=== PATIENT | male | born 2000 | race Caucasian/White ===

== ENCOUNTER 2023-11-14 16:44 | Observation (INO) ==
[2023-11-14 17:32] LABS: Hematocrit (blood only) 42.9 % (42.0-52.0); Hemoglobin 14.6 g/dl (14.0-18.0); Mean Corpuscular Volume 91.1 fL (80.0-100.0); Platelet Count 205 K/uL (130-400); RDW Coefficient of Variation 12.4 % (11.5-14.5); RDW Standard Deviation 41.1 fL (36.4-46.3); Red Blood Count 4.71 M/uL (4.70-6.10); White Blood Count 8.78 K/ul (4.8-10.8)
--- NOTE | 2023-11-14 17:46 | CT Scan Report ---
CT SCAN OF THE BRAIN WITHOUT IV CONTRAST CLINICAL HISTORY: Left upper and lower extremity numbness. Neurological deficit. Strokelike symptoms. COMPARISON STUDY: CT of the brain dated 01/19/2021. TECHNIQUE: Unenhanced axial CT scan of the brain is performed from the vertex to the skull base. A d ose lowering technique was utilized adhering to the principles of ALARA. CT DOSE: 625.8 mGy.cm FINDINGS: Brain parenchyma: The brain parenchyma is normal in appearance. There is no hemorrhage, mass effect, or evidence of acute territorial ischemia by CT criteria. Luque-white matter differentiation is preser brian. No extra-axial fluid collection is seen. Ventricles, sulci, cisterns: Normal in configuration. Intracranial vasculature: The visualized intracranial vasculature at the skull base is normal in appe arance. Calvarium: Unremarkable. Sinuses and mastoids: The visualized paranasal sinuses are clear. The mastoid air cells are well pneu matized. Orbits: The bony orbits are grossly intact. IMPRESSION: No acute intracranial abnormality. ACT 112: Negative or not required by law. Electronically signed by: Agustin Paz M.D. 11/14/2023 5:44 PM
[2023-11-14 17:53] LABS: Alanine Aminotransferase 12 U/L (7-52); Albumin Globulin Ratio 2.1 (0.9-2); Albumin Level 4.7 gm/dl (3.4-5.0); Alkaline Phosphatase 71 U/L (34-104); Anion Gap 6 (3-11); Aspartate Aminotransferase 15 U/L (13-39); BUN Creatinine Ratio 10.5 (10-20); Bilirubin,Total 0.7 mg/dl (0.2-1.0); Blood Urea Nitrogen 10 mg/dl (6-23); Calcium 9.7 mg/dl (8.6-10.3); Carbon Dioxide 27 mmol/L (21-32); Chloride 106 mmol/L (98-107); Est GFR (African American) 129.3 ml/min; Est GFR (Non-African American) 111.6 ml/min; Globulin 2.2 gm/dl (2.5-4.0); Glucose 101 mg/dl (70-99(Fasting)); Magnesium 1.7 mg/dl (1.7-2.4); Potassium 3.7 mmol/L (3.5-5.1); Sodium 139 mmol/L (136-145); Total Protein 6.9 gm/dl (6.0-8.3)
[2023-11-14 18:00] LABS: Partial Thromboplastin Ratio 0.9; Partial Thromboplastin Time 23 Seconds (21-31); Prothrombin Time 11.1 Seconds (9.0-12.0)
--- NOTE | 2023-11-14 18:54 | Emergency Department Note ---
Impression & Plan Fever, Back pain, Abdominal pain, SOB (shortness of breath), COVID-19 ED Provider Note CHIEF COMPLAINT: Back pain and paresthesias HISTORY OF PRESENTING ILLNESS: This 23-year-old male patient presents to the emergency department for evaluation of left-sided lower back pain as well as tingling in his left arm and left leg since yesterday morning. Denies any true numbness. Still able to move his arms and legs and walk, but he feels very weak. Denies pain in his neck or middle back at rest, but does have some pain with touching these areas. He denies any injury or trauma. Denies any loss of control of his bowel or bladder functions. 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 Has some mild SOB, but denies chest pain. Denies abdominal pain, nausea, or vomiting. He has been having fevers 102.5 F max that started this morning. Has been having a mild intermittent cough as well. Denies any other URI symptoms. Denies any previous spinal surgeries. He has had 4 lumbar punctures in the past due to evaluation for MS with his last LP in 2018. His last spinal and brain MRI was about 6-8 months ago at [facility]. 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 He follows up with neurology at [facility]. He is not on any steroids right now, but sometimes gets high dose steroids with a flare. However, he states that this does not feel like a typical flare for him. He feels like something else is going on. The patient states that he uses protection with all sexual encounters. He does not feel that he is at risk for STIs. REVIEW OF SYSTEMS: See HPI for pertinent positives and pertinent negatives. ALLERGIES: PCN MEDICATIONS: None PAST MEDICAL HISTORY: NMO (neuromyelitis optica), legally blind in both eyes PHYSICAL EXAM: VITALS: Vitals are noted on the nurse's note and reviewed by myself. GENERAL: No acute distress, non-diaphoretic. SKIN: No obvious abnormal rashes or skin lesions. Capillary reflex less than 2 seconds. HEAD: No scalp tenderness. No step-offs felt. EARS: Bilateral external auditory canals clear. Bilateral tympanic membranes pearly luque without erythema or effusion. No hemotympanum. No larios sign. No mastoid tenderness. EYES: Conjunctivae without injection, sclerae without icterus. Unable to accurately test EOM due to his blindness. NOSE: Patent, turbinates without inflammation or discharge. No sinus tenderness. No septal hematoma or bleeding. FACE: No facial bone tenderness. Full range of motion of the jaw without tenderness. No facial droop. MOUTH: Mucous membranes moist. Uvula midline. Airway patent. Tongue does not deviate. NECK: Supple without nuchal rigidity. Cervical spine is mildly tender to palpation in the mid to lower cervical spine and paraspinal muscles. Full range of motion of the neck without tenderness and normal strength. HEART: Regular rate and rhythm without murmurs gallops or rubs. LUNGS: Clear to auscultation bilaterally without wheezes, rales or rhonchi. No retractions or accessory muscle use. No chest wall tenderness. ABDOMEN: Positive bowel sounds x 4. Normal tympanic percussion. Soft, tender to palpation to the left side of the abdomen as well as the left flank. No obvious masses or organomegaly. Mildly positive left-sided CVA tenderness. No guarding or rebound tenderness. No focal right lower quadrant tenderness. MUSCULOSKELETAL: The patient is tender to palpation diffusely over the thoracic spine and lumbar spine. Maximal tenderness over the left-sided paraspinal muscles. Full range of motion of the bilateral upper and lower extremities. However, his left arm and left leg are weaker compared to the right on initial exam, but then normal strength on repeat exam. Normal sensation to light and sharp touch of the bilateral upper and lower extremities. Peripheral pulses 2+ and equal in the bilateral upper and lower extremities. : Permission to perform the exam. Patient Day Coordinator present for exam. Testicles are descended bilaterally. No testicular masses or lesions noted. No obvious penile lesions or discharge noted. No obvious hernias appreciated. RECTAL EXAM: Permission to perform the exam. Patient Day Coordinator present for exam. No external lesions noted. No external hemorrhoids. Normal sphincter tone. Internal hemorrhoids are not enlarged. No masses, tears, fistulas, fissures, abscess, or other lesion noted. Prostate does not feel enlarged and no obvious prostate lesions/masses. No significant tenderness to palpation of the prostate. Stool is brown and Hemoccult negative. NEURO: Patient was alert and oriented to person place and time. Normal mental status exam. DIFFERENTIAL DIAGNOSIS: Differential diagnosis includes strain/sprain, muscle spasm, disc herniation, fracture, subluxation, metastatic disease, cord compression, discitis, sciatica, cauda equina, conus medullaris syndrome, infection, epidural abscess, epidural hematoma, aortic disease, renal colic, UTI, pyelonephritis, gastrointestinal, Influenza, RSV, COVID, viral syndrome, otitis media, otitis externa, pharyngitis, strep throat, pneumonia, meningitis, urinary tract infection, cellulitis, abscess, sepsis, bacteremia, as well as other pathologies. ED COURSE AND MEDICAL DECISION MAKING: MONITOR: Continuous poultry picking machine tender: Order was placed for continuous poultry picking machine tender. Patient was placed on the poultry picking machine tender and continuous pulse ox. Patient was noted to be in normal sinus rhythm at an initial rate of 66 bpm per my interpretation. EKG: EKG was interpreted by myself as normal sinus rhythm at [address]pm with no acute ST or T wave changes. MEDICATIONS GIVEN: 1 L normal saline solution bolus. Tylenol 1000 mg IV. Morphine 4 mg IV. Zofran 4 mg IV. INTERPRETATION OF LABS: I interpreted the labs with full lab results as below in the lab section of this note. CBC without leukocytosis, anemia, or thrombocytopenia. Coags were normal. Glucose 101, but CMP otherwise unremarkable. High-sensitivity troponin was normal. TSH normal. Magnesium normal. Urinalysis unremarkable. Respiratory bio fire positive for COVID 19. INTERPRETATION OF IMAGING: Imaging studies were interpreted by myself and read by radiology as per the imaging section of this note. CT scan of the head without contrast was negative for acute intracranial abnormalities and the bony orbits were grossly intact. CT scans of the cervical, thoracic, and lumbar spines without contrast were negative for acute fracture, subluxation, discitis, osteomyelitis, or other significant abnormalities. CTA of the chest was negative for PE, pneumonia, or other acute abnormalities. CT scan of the abdomen pelvis with IV contrast shows hyperemia around the prostate and seminal vesicles. This may simply represent robust venous plexus, but correlation for infection should be considered. No other acute abnormalities. CONSULTATIONS: On-call hospitalist MDM SUMMARY: The patient was seen during a time of extreme volume and extreme acuity. Nursing triage protocols were initiated with IV lock, labs, and/or imaging studies conducted by protocol in the triage area. The patient was initially evaluated in a sub-waiting room and then re-examined once they were taken back to an exam room. The patient has had a fever of 102.5 F max since this morning along with a mild intermittent cough. He is complaining of left-sided back pain as well as left-sided abdominal pain. Has also had some paresthesias into his left arm and leg. The patient has had multiple LPs for evaluation of MS, but was ultimately diagnosed with NMO. The patient states that he last had an MRI of the brain and lower spine a couple months ago and [facility]. The patient was hydrated with 1 L normal saline solution bolus. He was given Tylenol 1000 mg IV, morphine 4 mg IV, and Zofran 4 mg IV. Laboratory studies as above without acute abnormalities other than a respiratory bio fire positive for COVID-19. CT scan of the head without contrast was negative for acute intracranial abnormalities. CT scans of the cervical, thoracic, and lumbar spine were negative for acute fracture, subluxation, discitis, osteomyelitis, or other significant abnormalities. CT of the chest negative for PE, pneumonia, or other acute abnormalities. CT scan of the abdomen pelvis with IV contrast shows hyperemia around the prostate and seminal vesicles, but the patient has no evidence for infection based on exam. Per radiology, this may simply represent robust venous plexus. I had a meaningful discussion about this patient with Dr. Chang who agrees with my assessment and the treatment plan. Due to the patient's fever, COVID infection, continued back pain/abdominal pain, and neurological symptoms we feel the patient requires admission for further evaluation and treatment. I spoke with the on-call hospitalist who agreed to admit the patient for further management. Please refer to their dictation for further details. The patient's care was transferred in stable condition. DIAGNOSIS: Fever Back pain Abdominal pain Shortness of breath COVID-19 Attending Attestation: I Son Chang MD I have reviewed the advanced practitioner's documentation and agree with the plan of care. I accept the responsibility for the associated risk of managing the patient. I performed a substantive portion of the visit including involvement in all aspects of medical decision making. Past Med/Surg History Problem List (Updated 11/15/23 @ 06:13 by Bishop Garcia MD) Left-sided weakness COVID-19 (Acute) SOB (shortness of breath) (Acute) Abdominal pain (Acute) Back pain (Acute) Fever (Acute) COVID (Acute) No pertinent past medical history Medical History No pertinent past medical history Social History Smoking Status: Current every day smoker Tobacco Type: Cigarettes Second Hand Exposure: Yes; Do You Dip or Chew Tobacco: No; Tobacco Cessation Education Requested by Patient: No Hx Alcohol Use: Yes Alcohol type: beer Hx Substance Use: Yes Last Used Substance: Unknown Substance Use Type Other:: Medical marijuana Preferred Language: Israeli Communication Ability: Effective Nursing Program Coordinator Required: No Beliefs That Will Affect Care: None Current Living Situation: Parent Current Living Situation Comment: Lives with mother Other Information That Helps Us Care for You: No Feels Safe at Home: Yes Safety Concerns: Feels Safe At This Time Allergies Allergies Allergy/AdvReac Type Severity Reaction Status Date / Time Penicillins Allergy Intermediate RED RASH & Verified 11/14/23 21:49 SWELLING Home Meds Home Medications Medication Instructions Recorded Confirmed No Known Home Medications 11/14/23 11/14/23 Results & Data (ED) Vital Signs Vital Signs - 24 hr 11/14/23 16:50 11/14/23 19:55 11/14/23 20:17 Temperature 37.4 C Temperature Source Oral Pulse Rate 90 68 Pulse Rate [Right Radial] 63 Pulse Rate from SpO2 Sensor Pulse Rhythm [Right Radial] Regular Pulse Strength [Right Radial] Normal Respiratory Rate 15 16 Respiratory Effort / Characteristics Non-Labored Spontaneous Non-Labored Spontaneous Respiratory Depth Normal Normal Respiratory Pattern Regular Blood Pressure 103/61 Blood Pressure [Left Arm] 103/54 L Blood Pressure Mean 75 Blood Pressure Mean [Left Arm] 70 Blood Pressure Position [Left Arm] Sitting Pulse Oximetry 97 98 Oxygen Delivery Method Room Air Room Air Sepsis Recent Fever Within 48 Hours No Sepsis New/Unexplained Change in Mental Status No Sepsis Action Taken by Nursing No Action Required 11/14/23 22:33 11/14/23 23:45 11/14/23 23:54 Temperature Temperature Source Pulse Rate 56 L 78 60 Pulse Rate [Right Radial] Pulse Rate from SpO2 Sensor 59 L Pulse Rhythm [Right Radial] Pulse Strength [Right Radial] Respiratory Rate 18 20 18 Respiratory Effort / Characteristics Respiratory Depth Respiratory Pattern Blood Pressure 118/60 111/61 118/60 Blood Pressure [Left Arm] Blood Pressure Mean 79 77 79 Blood Pressure Mean [Left Arm] Blood Pressure Position [Left Arm] Pulse Oximetry 99 99 98 Oxygen Delivery Method Room Air Room Air Room Air Sepsis Recent Fever Within 48 Hours Sepsis New/Unexplained Change in Mental Status Sepsis Action Taken by Nursing 11/15/23 00:13 11/15/23 00:30 11/15/23 01:00 Temperature Temperature Source Pulse Rate 53 L 58 L 71 Pulse Rate [Right Radial] Pulse Rate from SpO2 Sensor Pulse Rhythm [Right Radial] Pulse Strength [Right Radial] Respiratory Rate 17 15 Respiratory Effort / Characteristics Respiratory Depth Respiratory Pattern Blood Pressure 108/55 L 116/69 Blood Pressure [Left Arm] Blood Pressure Mean 72 84 Blood Pressure Mean [Left Arm] Blood Pressure Position [Left Arm] Pulse Oximetry 98 98 Oxygen Delivery Method Room Air Room Air Sepsis Recent Fever Within 48 Hours Sepsis New/Unexplained Change in Mental Status Sepsis Action Taken by Nursing Laboratory Data 11/15/23 03:35 11/15/23 03:35 Lab Results 11/14/23 11/14/23 Range/Units 17:10 Unknown WBC 8.78 (4.8-10.8) K/ul RBC 4.71 (4.70-6.10) M/uL Hgb 14.6 (14.0-18.0) g/dl Hct 42.9 (42.0-52.0) % MCV 91.1 (80.0-100.0) fL MCH 31.0 (25.0-34.0) pg MCHC 34.0 (32.0-36.0) g/dL RDW Std Deviation 41.1 (36.4-46.3) fL RDW Coeff of Patricia 12.4 (11.5-14.5) % Plt Count 205 (130-400) K/uL MPV 10.0 (9.4-12.4) fL PT 11.1 (9.0-12.0) Seconds INR 1.0 (0.9-1.1) APTT 23 (21-31) Seconds PTT Ratio 0.9 Sodium 139 (136-145) mmol/L Potassium 3.7 (3.5-5.1) mmol/L Chloride 106 (98-107) mmol/L Carbon Dioxide 27 (21-32) mmol/L Anion Gap 6 (3-11) BUN 10 (6-23) mg/dl Creatinine 0.95 (0.6-1.4) mg/dl Est Cr Clr Drug Dosing Not Reportable Est GFR ( Amer) 129.3 ml/min Est GFR (Non-Af Amer) 111.6 ml/min BUN/Creatinine Ratio 10.5 (10-20) Glucose 101 H (70-99(Fasting)) mg/dl Calcium 9.7 (8.6-10.3) mg/dl Magnesium 1.7 (1.7-2.4) mg/dl Total Bilirubin 0.7 (0.2-1.0) mg/dl AST 15 (13-39) U/L ALT 12 (7-52) U/L Alkaline Phosphatase 71 (34-104) U/L Troponin I High Sens < 2.3 (0-20) pg/ml Total Protein 6.9 (6.0-8.3) gm/dl Albumin 4.7 (3.4-5.0) gm/dl Globulin 2.2 L (2.5-4.0) gm/dl Albumin/Globulin Ratio 2.1 H (0.9-2) TSH 0.559 (0.300-4.500) uIu/ml Urine Color Yellow Urine Appearance Clear (Clear) Urine pH 7.5 (4.5-7.5) Ur Specific Hertel > 1.045 H (1.000-1.030) Urine Protein Negative (Negative) Urine Glucose (UA) Negative (Negative) Urine Ketones Negative (Negative) Urine Blood Negative (Negative) Urine Nitrite Negative (Negative) Urine Bilirubin Negative (Negative) Urine Urobilinogen Negative (Negative) Ur Leukocyte Esterase Negative (Negative) Adenovirus (PCR) Not Detected (NotDetected) B. pertussis DNA (PCR) Not Detected (NotDetected) B.parapertussis DNA PCR Not Detected (NotDetected) Lyme Disease Screen Negative (Negative) C. pneumoniae DNA (PCR) Not Detected (NotDetected) Coronavirus OC43 (PCR) Not Detected (NotDetected) Coronavirus HKU1 (PCR) Not Detected (NotDetected) Coronavirus 229E (PCR) Not Detected (NotDetected) SARS-CoV-2 (PCR) DETECTED A (NotDetected) Coronavirus NL63 (PCR) Not Detected (NotDetected) Human Metapneumovir PCR Not Detected (NotDetected) Influenza Type A (PCR) Not Detected (NotDetected) Influenza Type B (PCR) Not Detected (NotDetected) M. pneumoniae (PCR) Not Detected (NotDetected) Parainfluenza 1 (PCR) Not Detected (NotDetected) Parainfluenza 2 (PCR) Not Detected (NotDetected) Parainfluenza 3 (PCR) Not Detected (NotDetected) Parainfluenza 4 (PCR) Not Detected (NotDetected) RSV (PCR) Not Detected (NotDetected) Entero/Rhino (PCR) Not Detected (NotDetected) Administered Medications Enoxaparin Sodium (Enoxaparin Inj 40 Mg/0.4 Ml Syr) 40 mg SQ QAGREAT [facility] Stop: 12/15/23 08:59 Last Admin: 11/15/23 08:45 Dose: 40 mg Documented By: WAGNER Folic Acid (Folic Acid 1 Mg Tab) 1 mg PO QAGREAT [facility] Stop: 12/15/23 08:59 Last Admin: 11/15/23 08:44 Dose: 1 mg Documented By: WAGNER Multivitamins (Multivitamin Tab) 1 tab PO QAGREAT [facility] [place] Stop: 12/15/23 08:59 Last Admin: 11/15/23 08:44 Dose: 1 tab Documented By: WAGNER Discontinued Medications Acetaminophen (Acetaminophen 1000 Mg/100 Ml Iv) Confirm Administered Dose 1,000 mg IV .STK-MED ONE Stop: 11/14/23 18:50 Last Admin: 11/14/23 19:04 Dose: Not Given Documented By: CHRIS Acetaminophen (Ofirmev) 1,000 mg in 100 mls @ 400 mls/hr IV NOW STA Stop: 11/14/23 19:02 Last Infusion: 11/14/23 19:28 Dose: Infused Documented By: Admin: 11/14/23 19:03 Dose: 400 mls/hr Documented By: CHRIS Sodium Chloride (Nss) 1,000 mls @ 999 mls/hr IV .Q1H1M ONE Stop: 11/14/23 20:10 Last Infusion: 11/14/23 22:13 Dose: Infused Documented By: Admin: 11/14/23 20:07 Dose: 999 mls/hr Documented By: DELONTE Magnesium Sulfate/Dextrose (Magnesium Sulfate / D5w) 1 gm in 100 mls @ 50 mls/hr IV Q2H JOSSUE Stop: 11/15/23 04:29 Last Infusion: 11/15/23 04:00 Dose: Infused Documented By: Admin: 11/15/23 02:51 Dose: 50 mls/hr Documented By: Infusion: 11/15/23 02:51 Dose: Infused Documented By: Admin: 11/15/23 01:34 Dose: 50 mls/hr Documented By: DELONTE Potassium Chloride/Sodium Chloride (Normal Saline W/20 Meq Kcl) 20 meq in 1,000 mls @ 100 mls/hr IV .Q10H ONE; Protocol Stop: 11/15/23 10:29 Last Infusion: 11/15/23 10:52 Dose: Infused Documented By: Admin: 11/15/23 01:35 Dose: 100 mls/hr Documented By: DELONTE Thiamine HCl 100 mg/ Syringe 10 mls @ 2 mls/min IV NOW ONE Stop: 11/15/23 06:19 Last Admin: 11/15/23 08:44 Dose: 2 mls/min Documented By: WAGNER Ioversol (Optiray 320 125ml) 119 ml IV ONCE ONE Stop: 11/14/23 19:40 Last Admin: 11/14/23 19:39 Dose: 119 ml Documented By: RONALD Ketorolac Tromethamine (Ketorolac Tromethamine 15 Mg/Ml Vial) 15 mg IV NOW ONE Stop: 11/15/23 01:05 Last Admin: 11/15/23 01:34 Dose: 15 mg Documented By: DELONTE Morphine Sulfate (Morphine Sulfate 4 Mg/Ml 1 Ml Carp\Vial) 4 mg IV NOW STA Stop: 11/14/23 23:28 Last Admin: 11/14/23 23:37 Dose: 4 mg Documented By: DELONTE Ondansetron HCl (Ondansetron Inj 2 Mg/Ml 2 Ml Vial) 4 mg IV NOW STA Stop: 11/14/23 23:28 Last Admin: 11/14/23 23:37 Dose: 4 mg Documented By: DELONTE Potassium Chloride (Potassium Chloride Crtab 20 Meq Tabcr) 40 meq PO NOW STA Stop: 11/15/23 00:25 Last Admin: 11/15/23 01:33 Dose: 40 meq Documented By: DELONTE Imaging Data Radiologist's Impression: Head CT 11/14/23 16:57 CT SCAN OF THE BRAIN WITHOUT IV CONTRAST CLINICAL HISTORY: Left upper and lower extremity numbness. Neurological deficit. Strokelike symptoms. COMPARISON STUDY: CT of the brain dated 01/19/2021. TECHNIQUE: Unenhanced axial CT scan of the brain is performed from the vertex to the skull base. A dose lowering technique was utilized adhering to the principles of ALARA. CT DOSE: 625.8 mGy.cm FINDINGS: Brain parenchyma: The brain parenchyma is normal in appearance. There is no hemorrhage, mass effect, or evidence of acute territorial ischemia by CT criteria. Luque-white matter differentiation is preserved. No extra-axial fluid collection is seen. Ventricles, sulci, cisterns: Normal in configuration. Intracranial vasculature: The visualized intracranial vasculature at the skull base is normal in appearance. Calvarium: Unremarkable. Sinuses and mastoids: The visualized paranasal sinuses are clear. The mastoid air cells are well pneumatized. Orbits: The bony orbits are grossly intact. IMPRESSION: No acute intracranial abnormality. ACT 112: Negative or not required by law. Electronically signed by: Agustin Paz M.D. 11/14/2023 5:44 PM Abdomen/Pelvis CT 11/14/23 19:10 Exam(s): CT ABDOMEN + PELVIS With Contrast IV Amt: 119 ml optiray 320 EXAM: CT Abdomen and Pelvis With Intravenous Contrast CLINICAL HISTORY: Reason for exam: abdominal pain, fever, left flank pain. TECHNIQUE: Axial computed tomography images of the abdomen and pelvis with intravenous contrast. CTDI is 14.43 mGy and DLP is 732.91 mGy-cm. Automated exposure control was utilized for the study. A dose lowering technique was utilized adhering to the principles of ALARA. CONTRAST: Patient received 119 ml optiray 320 of IV contrast COMPARISON: No relevant prior studies available. FINDINGS: ABDOMEN: Liver: Unremarkable. Gallbladder and bile ducts: Unremarkable. Pancreas: Unremarkable. Spleen: Unremarkable. Adrenals: Unremarkable. Kidneys and ureters: Normal enhancement of the kidneys. No hydronephrosis. No stones. Stomach and bowel: Unremarkable. PELVIS: Appendix: Normal appendix. Bladder: Unremarkable. Reproductive: Hyperemia around the prostate and seminal vesicles. ABDOMEN and PELVIS: Intraperitoneal space: Unremarkable. No free air. No significant fluid collection. Bones/joints: Bilateral pars defects at L5. No acute osseous abnormality. Soft tissues: Unremarkable. Vasculature: Unremarkable. Lymph nodes: Unremarkable. IMPRESSION: Hyperemia around the prostate and seminal vesicles. Correlate for infection. This may simply represent robust venous plexus. Electronically signed by: Jem Ibrahim MD 11/14/23 22:[address] 11/14/23 19:10 Exam(s): CT C SPINE EXAM: CT Cervical Spine Without Intravenous Contrast CLINICAL HISTORY: Reason for exam: Neck pain, fever. TECHNIQUE: Axial computed tomography images of the cervical spine without intravenous contrast. CTDI is 11.87 mGy and DLP is 5.94 mGy-cm. Automated exposure control was utilized for the study. A dose lowering technique was utilized adhering to the principles of ALARA. COMPARISON: No relevant prior studies available. FINDINGS: Vertebrae: No acute fracture. No malalignment. Disc spaces are preserved. No evidence of discitis or osteomyelitis. No spinal canal or foraminal stenosis. Soft tissues: Unremarkable. IMPRESSION: No acute abnormality within the cervical spine. Electronically signed by: Jem Ibrahim MD 11/15/23 00:05 AM Chest CTA 11/14/23 19:10 Exam(s): CTA CHEST IV Amt: 119 ml optiray 320 EXAM: CT Angiography Chest With Intravenous Contrast CLINICAL HISTORY: Reason for exam: PE. TECHNIQUE: Axial computed tomographic angiography images of the chest with intravenous contrast. CTDI is 17.28 mGy and DLP is 614.03 mGy-cm. Automated exposure control was utilized for the study. A dose lowering technique was utilized adhering to the principles of ALARA. MIP reconstructed images were created and reviewed. COMPARISON: No relevant prior studies available. FINDINGS: Pulmonary arteries: Unremarkable. No pulmonary embolism. Aorta: No acute findings. Normal caliber. No dissection. Lungs: No consolidation or interstitial edema. Paraseptal blebs at the apices. Airways are clear. Pleural space: Unremarkable. Heart: Unremarkable. Bones/joints: No acute fracture. Soft tissues: Unremarkable. Lymph nodes: Unremarkable. IMPRESSION: No acute findings in the visualized arteries of the chest. Electronically signed by: Jem Ibrahim MD 11/14/23 22:[address] 11/14/23 19:10 Exam(s): CT L SPINE With Contrast IV Amt: 119 ml optiray 320 EXAM: CT Lumbar Spine With Intravenous Contrast CLINICAL HISTORY: Reason for exam: Low back pain, fever, paresthesias. TECHNIQUE: Axial computed tomography images of the lumbar spine with intravenous contrast. CTDI is 14.43 mGy and DLP is 732.91 mGy-cm. Automated exposure control was utilized for the study. A dose lowering technique was utilized adhering to the principles of ALARA. CONTRAST: Patient received 119 ml optiray 320 of IV contrast COMPARISON: No relevant prior studies available. FINDINGS: No acute fracture or malalignment. Bilateral pars defects at L5. Trace anterolisthesis at L5-S1. Vertebral body heights are preserved. No canal stenosis. Mild foraminal stenosis at L4-5 and L5-S1. No evidence of discitis osteomyelitis. Soft tissues are unremarkable. IMPRESSION: No acute abnormality in the lumbar spine. Electronically signed by: Jem Ibrahim MD 11/14/23 22:[address] 11/14/23 19:10 Exam(s): CT T SPINE IV Amt: 119 ml optiray 320 EXAM: CT Thoracic Spine With Intravenous Contrast CLINICAL HISTORY: Reason for exam: Back pain, fever. TECHNIQUE: Axial computed tomography images of the thoracic spine with intravenous contrast. CTDI is 17.28 mGy and DLP is 614.03 mGy-cm. Automated exposure control was utilized for the study. A dose lowering technique was utilized adhering to the principles of ALARA. CONTRAST: Patient received 119 ml optiray 320 of IV contrast COMPARISON: No relevant prior studies available. FINDINGS: Vertebrae: Unremarkable. No acute fracture. Other bones/joints: No acute fracture or malalignment. No discitis osteomyelitis. No significant disc disease or stenosis. Soft tissues: Unremarkable. IMPRESSION: No acute abnormality within the thoracic spine. Electronically signed by: Jem Ibrahim MD 11/14/23 23:55 PM Discharge Plan Visit Data Chief Complaint: TIA Symptoms Stated Complaint: BACK PAIN, LT LEG/ARM NUMBNESS/PAIN, UNBALANCED ED Provider: Son Chang ED Midlevel Provider: Gloria Luther Discharge Problem: Fever, Back pain, Abdominal pain, SOB (shortness of breath), COVID-19 Patient Disposition: Admitted As Inpatient Condition: Good Discharge Instructions Interventions: ED Discharge Assessment Last Done: 11/15/23 02:14 Discharge Problem: Fever Qualifiers: Encounter type: initial encounter Back pain Qualifiers: Back pain location: back pain in unspecified location Chronicity: acute Back pain laterality: bilateral Qualified Code(s): M54.9 - Dorsalgia, unspecified Abdominal pain Qualifiers: Abdominal location: generalized Qualified Code(s): R10.84 - Generalized abdominal pain
[2023-11-14] MEDS: ACETAMINOPHEN 1,000 MG/100 ML VIAL IV STA (19:03)
[2023-11-14] MEDS: ACETAMINOPHEN 1000 MG/100 ML IV IV ONE (19:04)
[2023-11-14 19:38] LABS: Troponin I High Sensitivity < 2.3 pg/ml (0-20)
[2023-11-14] MEDS: OPTIRAY 320 125ml IV ONE (19:39)
[2023-11-14 19:47] LABS: Thyroid Stimulating Hormone 0.559 uIu/ml (0.300-4.500)
[2023-11-14] MEDS: SODIUM CHLORIDE 0.9% 1,000 ML IV ONE (20:07)
[2023-11-14 20:42] LABS: Adenovirus PCR Not Detected (NotDetected); Bordetella parapertussis PCR Not Detected (NotDetected); Bordetella pertussis PCR Not Detected (NotDetected); Chlamydia pneumoniae PCR Not Detected (NotDetected); Coronavirus 229E PCR Not Detected (NotDetected); Coronavirus CoV-2 (COVID19)PCR DETECTED (NotDetected); Coronavirus HKU1 PCR Not Detected (NotDetected); Coronavirus NL63 PCR Not Detected (NotDetected); Coronavirus OC43PCR Not Detected (NotDetected); Human Metapneumovirus PCR Not Detected (NotDetected); Influenza A PCR Not Detected (NotDetected); Influenza B PCR Not Detected (NotDetected); Mycoplasma pneumoniae PCR Not Detected (NotDetected); Parainfluenza Virus 1 PCR Not Detected (NotDetected); Parainfluenza Virus 2 PCR Not Detected (NotDetected); Parainfluenza Virus 3 PCR Not Detected (NotDetected); Parainfluenza Virus 4 PCR Not Detected (NotDetected); Respiratory Syncytial VirusPCR Not Detected (NotDetected); Rhinovirus/Enterovirus PCR Not Detected (NotDetected)
[2023-11-14 21:16] LABS: Appearance Urine Clear (Clear); Bilirubin Urine Negative (Negative); Blood Urine Negative (Negative); Color Urine Yellow; Glucose Urine UA Negative (Negative); Ketones Urine Negative (Negative); Leukocyte Esterase Urine Negative (Negative); Nitrite Urine Negative (Negative); Protein Urine Negative (Negative); Specific Gravity Urine > 1.045 (1.000-1.030); Urobilinogen Urine Negative (Negative); pH Urine 7.5 (4.5-7.5)
--- NOTE | 2023-11-14 22:33 | CT Scan Report ---
Exam(s): CTA CHEST IV Amt: 119 ml optiray 320 EXAM: CT Angiography Chest With Intravenous Contrast CLINICAL HISTORY: Reason for exam: PE. TECHNIQUE: Axial computed tomographic angiography images of the chest with intravenous contrast. CTDI is 17.28 mGy and DLP is 614.03 mGy-cm. Automated exposure control was utilized for the study. A dose lowering technique was utilized adhering to the principles of ALARA. MIP reconstructed images were created and reviewed. COMPARISON: No relevant prior studies available. FINDINGS: Pulmonary arteries: Unremarkable. No pulmonary embolism. Aorta: No acute findings. Normal caliber. No dissection. Lungs: No consolidation or interstitial edema. Paraseptal blebs at the apices. Airways are clear. Pleural space: Unremarkable. Heart: Unremarkable. Bones/joints: No acute fracture. Soft tissues: Unremarkable. Lymph nodes: Unremarkable. IMPRESSION: No acute findings in the visualized arteries of the chest. Electronically signed by: Jem Ibrahim MD 11/14/23 22:32 PM
--- NOTE | 2023-11-14 22:44 | CT Scan Report ---
Exam(s): CT ABDOMEN + PELVIS With Contrast IV Amt: 119 ml optiray 320 EXAM: CT Abdomen and Pelvis With Intravenous Contrast CLINICAL HISTORY: Reason for exam: abdominal pain, fever, left flank pain. TECHNIQUE: Axial computed tomography images of the abdomen and pelvis with intravenous contrast. CTDI is 14.43 mGy and DLP is 732.91 mGy-cm. Automated exposure control was utilized for the study. A dose lowering technique was utilized adhering to the principles of ALARA. CONTRAST: Patient received 119 ml optiray 320 of IV contrast COMPARISON: No relevant prior studies available. FINDINGS: ABDOMEN: Liver: Unremarkable. Gallbladder and bile ducts: Unremarkable. Pancreas: Unremarkable. Spleen: Unremarkable. Adrenals: Unremarkable. Kidneys and ureters: Normal enhancement of the kidneys. No hydronephrosis. No stones. Stomach and bowel: Unremarkable. PELVIS: Appendix: Normal appendix. Bladder: Unremarkable. Reproductive: Hyperemia around the prostate and seminal vesicles. ABDOMEN and PELVIS: Intraperitoneal space: Unremarkable. No free air. No significant fluid collection. Bones/joints: Bilateral pars defects at L5. No acute osseous abnormality. Soft tissues: Unremarkable. Vasculature: Unremarkable. Lymph nodes: Unremarkable. IMPRESSION: Hyperemia around the prostate and seminal vesicles. Correlate for infection. This may simply represent robust venous plexus. Electronically signed by: Jem Ibrahim MD 11/14/23 22:43 PM
--- NOTE | 2023-11-14 22:49 | CT Scan Report ---
Exam(s): CT L SPINE With Contrast IV Amt: 119 ml optiray 320 EXAM: CT Lumbar Spine With Intravenous Contrast CLINICAL HISTORY: Reason for exam: Low back pain, fever, paresthesias. TECHNIQUE: Axial computed tomography images of the lumbar spine with intravenous contrast. CTDI is 14.43 mGy and DLP is 732.91 mGy-cm. Automated exposure control was utilized for the study. A dose lowering technique was utilized adhering to the principles of ALARA. CONTRAST: Patient received 119 ml optiray 320 of IV contrast COMPARISON: No relevant prior studies available. FINDINGS: No acute fracture or malalignment. Bilateral pars defects at L5. Trace anterolisthesis at L5-S1. Vertebral body heights are preserved. No canal stenosis. Mild foraminal stenosis at L4-5 and L5-S1. No evidence of discitis osteomyelitis. Soft tissues are unremarkable. IMPRESSION: No acute abnormality in the lumbar spine. Electronically signed by: Jme Ibrahim MD 11/14/23 22:48 PM
[2023-11-14] MEDS: ONDANSETRON INJ 2 MG/ML 2 ML VIAL IV STA (23:37)
[2023-11-14] MEDS: MoRPHine SULFATE 4 MG/ML 1 ML CARP\\VIAL IV STA (23:37)
--- NOTE | 2023-11-14 23:56 | CT Scan Report ---
Exam(s): CT T SPINE IV Amt: 119 ml optiray 320 EXAM: CT Thoracic Spine With Intravenous Contrast CLINICAL HISTORY: Reason for exam: Back pain, fever. TECHNIQUE: Axial computed tomography images of the thoracic spine with intravenous contrast. CTDI is 17.28 mGy and DLP is 614.03 mGy-cm. Automated exposure control was utilized for the study. A dose lowering technique was utilized adhering to the principles of ALARA. CONTRAST: Patient received 119 ml optiray 320 of IV contrast COMPARISON: No relevant prior studies available. FINDINGS: Vertebrae: Unremarkable. No acute fracture. Other bones/joints: No acute fracture or malalignment. No discitis osteomyelitis. No significant disc disease or stenosis. Soft tissues: Unremarkable. IMPRESSION: No acute abnormality within the thoracic spine. Electronically signed by: Jem Ibrahim MD 11/14/23 23:55 PM
--- NOTE | 2023-11-15 00:06 | CT Scan Report ---
Exam(s): CT C SPINE EXAM: CT Cervical Spine Without Intravenous Contrast CLINICAL HISTORY: Reason for exam: Neck pain, fever. TECHNIQUE: Axial computed tomography images of the cervical spine without intravenous contrast. CTDI is 11.87 mGy and DLP is 5.94 mGy-cm. Automated exposure control was utilized for the study. A dose lowering technique was utilized adhering to the principles of ALARA. COMPARISON: No relevant prior studies available. FINDINGS: Vertebrae: No acute fracture. No malalignment. Disc spaces are preserved. No evidence of discitis or osteomyelitis. No spinal canal or foraminal stenosis. Soft tissues: Unremarkable. IMPRESSION: No acute abnormality within the cervical spine. Electronically signed by: Jem Ibrahim MD 11/15/23 00:05 AM
--- NOTE | 2023-11-15 01:02 | History & Physical Report ---
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 NMOSD flareup secondary to COVID-19 illness ADHD, mood disorder, stable off maintenance medications ongoing tobacco/alcohol abuse OBS Medical telemetry Neurochecks MRI brain, orbit, spine Neurology consult Re: Neurologic symptoms, history NMOSD Supportive management for COVID-19 illness PAULY S at risk protocol, DT precautions Nicotine patch as needed DVT prophylaxis. Lovenox subcu Full code Text document was generated using [employer] voice recognition software. It may contain grammatical or spelling errors. Kindly contact undersigned for clarification of any documentation item in question. History of Present Illness Chief Complaint: Back pain, left leg and arm weakness, tingling numbness Primary Care Provider: NO PCP History obtained from patient and records. 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 [place] [facility] [place] [facility] imaging. No esophageal perforation on esophagogram. Pneumomediastinum possibly from bleb rupture with air leak into mediastinal place as per thoracic surgery. No procedures done. Patient requested to be discharged. Patient not feeling well the last couple of days. Chills and shaking. Dry cough symptoms. No chest pain, no SOB, no abdominal pain. Yesterday morning, patient noted low back pain with associated left leg and some left arm weakness. No headache, no nausea, no vomiting. Increased blurred vision on bad left eye as per patient. Patient initially went to [facility] ER for evaluation. Patient proceeded to [facility] because [facility] ER was very busy. 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; originally from [place], patient contemplating move to [place], [place] following discharge from hospital Allergies Allergy/AdvReac Type Severity Reaction Status Date / Time Penicillins Allergy Intermediate RED RASH & Verified 11/14/23 21:49 SWELLING Home Medications Medication Instructions Recorded Confirmed Type No Known Home Medications 11/14/23 11/14/23 History Past Med/Surg History Problem List (Updated 11/15/23 @ 06:13 by Bishop Garcia MD) Left-sided weakness COVID-19 (Acute) SOB (shortness of breath) (Acute) Abdominal pain (Acute) Back pain (Acute) Fever (Acute) COVID (Acute) No pertinent past medical history Medical History No pertinent past medical history Social History Smoking Status: Current every day smoker Tobacco Type: Cigarettes Second Hand Exposure: Yes; Do You Dip or Chew Tobacco: No; Tobacco Cessation Education Requested by Patient: No Hx Alcohol Use: Yes Alcohol type: beer Hx Substance Use: Yes Last Used Substance: Unknown Substance Use Type Other:: Medical marijuana Preferred Language: Gambian Communication Ability: Effective Hotel Breakfast Attendant Required: No Beliefs That Will Affect Care: None Current Living Situation: Parent Current Living Situation Comment: Lives with mother Other Information That Helps Us Care for You: No Feels Safe at Home: Yes Safety Concerns: Feels Safe At This Time Review of Systems Review of Systems: As per HPI, all other systems reviewed and negative Physical Exam Physical Exam: GENERAL: Slightly uncomfortable, wane, no respiratory distress SKIN: Normal color, warm HEENT: [place] palpebral conjunctivae, no ptosis, dry buccal mucosa NECK : Supple, no tenderness CHEST : CTA, no tenderness HEART : Bradycardic, no obvious murmurs ABDOMEN: no distention, nontender BACK : Low back tenderness, negative SLR EXTREMITIES : No LE swelling/tenderness, no other conspicuous deformities noted NEUROLOGIC : Coherent, no facial asymmetry, MMTS BUE/BLE 4/5, gait and stance not assessed Results & Data Results & Data Vital Signs (Past 12 Hours) Vital Signs Temp Pulse Pulse Resp BP BP Pulse Ox 11/15/23 00:30 58 L 17 108/55 L 98 11/15/23 00:13 53 L 11/14/23 23:54 60 18 118/60 98 11/14/23 23:45 78 20 111/61 99 11/14/23 22:33 56 L 18 118/60 99 11/14/23 20:17 68 11/14/23 19:55 63 16 103/54 L 98 11/14/23 16:50 37.4 C 90 15 103/61 97 O2 Del Method 11/15/23 00:30 Room Air 11/15/23 00:13 11/14/23 23:54 Room Air 11/14/23 23:45 Room Air 11/14/23 22:33 Room Air 11/14/23 20:17 11/14/23 19:55 Room Air 11/14/23 16:50 Room Air Laboratory Results Laboratory Results WBC 8.78 K/ul (4.8-10.8) 11/14/23 17:10 RBC 4.71 M/uL (4.70-6.10) 11/14/23 17:10 Hgb 14.6 g/dl (14.0-18.0) 11/14/23 17:10 Hct 42.9 % (42.0-52.0) 11/14/23 17:10 MCV 91.1 fL (80.0-100.0) 11/14/23 17:10 MCH 31.0 pg (25.0-34.0) 11/14/23 17:10 MCHC 34.0 g/dL (32.0-36.0) 11/14/23 17:10 RDW Std Deviation 41.1 fL (36.4-46.3) 11/14/23 17:10 RDW Coeff of Patricia 12.4 % (11.5-14.5) 11/14/23 17:10 Plt Count 205 K/uL (130-400) 11/14/23 17:10 MPV 10.0 fL (9.4-12.4) 11/14/23 17:10 PT 11.1 Seconds (9.0-12.0) 11/14/23 17:10 INR 1.0 (0.9-1.1) 11/14/23 17:10 APTT 23 Seconds (21-31) 11/14/23 17:10 PTT Ratio 0.9 11/14/23 17:10 Sodium 139 mmol/L (136-145) 11/14/23 17:10 Potassium 3.7 mmol/L (3.5-5.1) 11/14/23 17:10 Chloride 106 mmol/L (98-107) 11/14/23 17:10 Carbon Dioxide 27 mmol/L (21-32) 11/14/23 17:10 Anion Gap 6 (3-11) 11/14/23 17:10 BUN 10 mg/dl (6-23) 11/14/23 17:10 Creatinine 0.95 mg/dl (0.6-1.4) 11/14/23 17:10 Est Cr Clr Drug Dosing Not Reportable 11/14/23 17:10 Est GFR ( Amer) 129.3 ml/min 11/14/23 17:10 Est GFR (Non-Af Amer) 111.6 ml/min 11/14/23 17:10 BUN/Creatinine Ratio 10.5 (10-20) 11/14/23 17:10 Glucose 101 mg/dl (70-99(Fasting)) H 11/14/23 17:10 Calcium 9.7 mg/dl (8.6-10.3) 11/14/23 17:10 Magnesium 1.7 mg/dl (1.7-2.4) 11/14/23 17:10 Total Bilirubin 0.7 mg/dl (0.2-1.0) 11/14/23 17:10 AST 15 U/L (13-39) 11/14/23 17:10 ALT 12 U/L (7-52) 11/14/23 17:10 Alkaline Phosphatase 71 U/L (34-104) 11/14/23 17:10 Troponin I High Sens < 2.3 pg/ml (0-20) 11/14/23 17:10 Total Protein 6.9 gm/dl (6.0-8.3) 11/14/23 17:10 Albumin 4.7 gm/dl (3.4-5.0) 11/14/23 17:10 Globulin 2.2 gm/dl (2.5-4.0) L 11/14/23 17:10 Albumin/Globulin Ratio 2.1 (0.9-2) H 11/14/23 17:10 TSH 0.559 uIu/ml (0.300-4.500) 11/14/23 17:10 Urine Color Yellow 11/14/23 Unknown Urine Appearance Clear (Clear) 11/14/23 Unknown Urine pH 7.5 (4.5-7.5) 11/14/23 Unknown Ur Specific [place] > 1.045 (1.000-1.030) H 11/14/23 Unknown Urine Protein Negative (Negative) 11/14/23 Unknown Urine Glucose (UA) Negative (Negative) 11/14/23 Unknown Urine Ketones Negative (Negative) 11/14/23 Unknown Urine Blood Negative (Negative) 11/14/23 Unknown Urine Nitrite Negative (Negative) 11/14/23 Unknown Urine Bilirubin Negative (Negative) 11/14/23 Unknown Urine Urobilinogen Negative (Negative) 11/14/23 Unknown Ur Leukocyte Esterase Negative (Negative) 11/14/23 Unknown Adenovirus (PCR) Not Detected (NotDetected) 11/14/23 Unknown B. pertussis DNA (PCR) Not Detected (NotDetected) 11/14/23 Unknown B.parapertussis DNA PCR Not Detected (NotDetected) 11/14/23 Unknown C. pneumoniae DNA (PCR) Not Detected (NotDetected) 11/14/23 Unknown Coronavirus OC43 (PCR) Not Detected (NotDetected) 11/14/23 Unknown Coronavirus HKU1 (PCR) Not Detected (NotDetected) 11/14/23 Unknown Coronavirus 229E (PCR) Not Detected (NotDetected) 11/14/23 Unknown SARS-CoV-2 (PCR) DETECTED (NotDetected) A 11/14/23 Unknown Coronavirus NL63 (PCR) Not Detected (NotDetected) 11/14/23 Unknown Human Metapneumovir PCR Not Detected (NotDetected) 11/14/23 Unknown Influenza Type A (PCR) Not Detected (NotDetected) 11/14/23 Unknown Influenza Type B (PCR) Not Detected (NotDetected) 11/14/23 Unknown M. pneumoniae (PCR) Not Detected (NotDetected) 11/14/23 Unknown Parainfluenza 1 (PCR) Not Detected (NotDetected) 11/14/23 Unknown Parainfluenza 2 (PCR) Not Detected (NotDetected) 11/14/23 Unknown Parainfluenza 3 (PCR) Not Detected (NotDetected) 11/14/23 Unknown Parainfluenza 4 (PCR) Not Detected (NotDetected) 11/14/23 Unknown RSV (PCR) Not Detected (NotDetected) 11/14/23 Unknown Entero/Rhino (PCR) Not Detected (NotDetected) 11/14/[address] 11/14/23 16:57 CT SCAN OF THE BRAIN WITHOUT IV CONTRAST CLINICAL HISTORY: Left upper and lower extremity numbness. Neurological deficit. Strokelike symptoms. COMPARISON STUDY: CT of the brain dated 01/19/2021. TECHNIQUE: Unenhanced axial CT scan of the brain is performed from the vertex to the skull base. A dose lowering technique was utilized adhering to the principles of ALARA. CT DOSE: 625.8 mGy.cm FINDINGS: Brain parenchyma: The brain parenchyma is normal in appearance. There is no hemorrhage, mass effect, or evidence of acute territorial ischemia by CT criteria. [place]-white matter differentiation is preserved. No extra-axial fluid collection is seen. Ventricles, sulci, cisterns: Normal in configuration. Intracranial vasculature: The visualized intracranial vasculature at the skull base is normal in appearance. Calvarium: Unremarkable. Sinuses and mastoids: The visualized paranasal sinuses are clear. The mastoid air cells are well pneumatized. Orbits: The bony orbits are grossly intact. IMPRESSION: No acute intracranial abnormality. ACT 112: Negative or not required by law. Electronically signed by: Agustin Paz M.D. 11/14/2023 5:44 PM Abdomen/Pelvis CT 11/14/23 19:10 Exam(s): CT ABDOMEN + PELVIS With Contrast IV Amt: 119 ml optiray 320 EXAM: CT Abdomen and Pelvis With Intravenous Contrast CLINICAL HISTORY: Reason for exam: abdominal pain, fever, left flank pain. TECHNIQUE: Axial computed tomography images of the abdomen and pelvis with intravenous contrast. CTDI is 14.43 mGy and DLP is 732.91 mGy-cm. Automated exposure control was utilized for the study. A dose lowering technique was utilized adhering to the principles of ALARA. CONTRAST: Patient received 119 ml optiray 320 of IV contrast COMPARISON: No relevant prior studies available. FINDINGS: ABDOMEN: Liver: Unremarkable. Gallbladder and bile ducts: Unremarkable. Pancreas: Unremarkable. Spleen: Unremarkable. Adrenals: Unremarkable. Kidneys and ureters: Normal enhancement of the kidneys. No hydronephrosis. No stones. Stomach and bowel: Unremarkable. PELVIS: Appendix: Normal appendix. Bladder: Unremarkable. Reproductive: Hyperemia around the prostate and seminal vesicles. ABDOMEN and PELVIS: Intraperitoneal space: Unremarkable. No free air. No significant fluid collection. Bones/joints: Bilateral pars defects at L5. No acute osseous abnormality. Soft tissues: Unremarkable. Vasculature: Unremarkable. Lymph nodes: Unremarkable. IMPRESSION: Hyperemia around the prostate and seminal vesicles. Correlate for infection. This may simply represent robust venous plexus. Electronically signed by: Jem Ibrahim MD 11/14/23 22:[address] 11/14/23 19:10 Exam(s): CT C SPINE EXAM: CT Cervical Spine Without Intravenous Contrast CLINICAL HISTORY: Reason for exam: Neck pain, fever. TECHNIQUE: Axial computed tomography images of the cervical spine without intravenous contrast. CTDI is 11.87 mGy and DLP is 5.94 mGy-cm. Automated exposure control was utilized for the study. A dose lowering technique was utilized adhering to the principles of ALARA. COMPARISON: No relevant prior studies available. FINDINGS: Vertebrae: No acute fracture. No malalignment. Disc spaces are preserved. No evidence of discitis or osteomyelitis. No spinal canal or foraminal stenosis. Soft tissues: Unremarkable. IMPRESSION: No acute abnormality within the cervical spine. Electronically signed by: Jem Ibrahim MD 11/15/23 00:05 AM Chest CTA 11/14/23 19:10 Exam(s): CTA CHEST IV Amt: 119 ml optiray 320 EXAM: CT Angiography Chest With Intravenous Contrast CLINICAL HISTORY: Reason for exam: PE. TECHNIQUE: Axial computed tomographic angiography images of the chest with intravenous contrast. CTDI is 17.28 mGy and DLP is 614.03 mGy-cm. Automated exposure control was utilized for the study. A dose lowering technique was utilized adhering to the principles of ALARA. MIP reconstructed images were created and reviewed. COMPARISON: No relevant prior studies available. FINDINGS: Pulmonary arteries: Unremarkable. No pulmonary embolism. Aorta: No acute findings. Normal caliber. No dissection. Lungs: No consolidation or interstitial edema. Paraseptal blebs at the apices. Airways are clear. Pleural space: Unremarkable. Heart: Unremarkable. Bones/joints: No acute fracture. Soft tissues: Unremarkable. Lymph nodes: Unremarkable. IMPRESSION: No acute findings in the visualized arteries of the chest. Electronically signed by: Jem Ibrahim MD 11/14/23 22:[address] 11/14/23 19:10 Exam(s): CT L SPINE With Contrast IV Amt: 119 ml optiray 320 EXAM: CT Lumbar Spine With Intravenous Contrast CLINICAL HISTORY: Reason for exam: Low back pain, fever, paresthesias. TECHNIQUE: Axial computed tomography images of the lumbar spine with intravenous contrast. CTDI is 14.43 mGy and DLP is 732.91 mGy-cm. Automated exposure control was utilized for the study. A dose lowering technique was utilized adhering to the principles of ALARA. CONTRAST: Patient received 119 ml optiray 320 of IV contrast COMPARISON: No relevant prior studies available. FINDINGS: No acute fracture or malalignment. Bilateral pars defects at L5. Trace anterolisthesis at L5-S1. Vertebral body heights are preserved. No canal stenosis. Mild foraminal stenosis at L4-5 and L5-S1. No evidence of discitis osteomyelitis. Soft tissues are unremarkable. IMPRESSION: No acute abnormality in the lumbar spine. Electronically signed by: Jem Ibrahim MD 11/14/23 22:[address] 11/14/23 19:10 Exam(s): CT T SPINE IV Amt: 119 ml optiray 320 EXAM: CT Thoracic Spine With Intravenous Contrast CLINICAL HISTORY: Reason for exam: Back pain, fever. TECHNIQUE: Axial computed tomography images of the thoracic spine with intravenous contrast. CTDI is 17.28 mGy and DLP is 614.03 mGy-cm. Automated exposure control was utilized for the study. A dose lowering technique was utilized adhering to the principles of ALARA. CONTRAST: Patient received 119 ml optiray 320 of IV contrast COMPARISON: No relevant prior studies available. FINDINGS: Vertebrae: Unremarkable. No acute fracture. Other bones/joints: No acute fracture or malalignment. No discitis osteomyelitis. No significant disc disease or stenosis. Soft tissues: Unremarkable. IMPRESSION: No acute abnormality within the thoracic spine. Electronically signed by: Jem Ibrahim MD 11/14/23 23:55 PM Diagnostic Findings EKG as per my interpretation : Rate 70, NSR, RAD, T wave abnormalities lateral leads
[2023-11-15] MEDS ORDERED: PHARMACIST DISCHARGE MED REC CONSULT PRN (01:04)
[2023-11-15] MEDS ORDERED: PROMETHAZINE HCL 6.25 MG in SODIUM CHLORIDE 0.9% 50 ML IV PRN (01:05)
[2023-11-15] MEDS: POTASSIUM CHLORIDE CRTAB 20 MEQ TABCR PO STA (01:33)
[2023-11-15] MEDS: MAGNESIUM SULFATE / D5W 1 GM/100 ML BAG IV SCH (01:34)
[2023-11-15] MEDS: KETOROLAC TROMETHAMINE 15 MG/ML VIAL IV ONE (01:34)
[2023-11-15] MEDS: NSS + 20MEQ KCL 20 MEQ/1,000 ML BAG IV ONE (01:35)
[2023-11-15 04:17] LABS: Basophils # (auto) 0.02 K/uL (0.00-0.20); Basophils % (auto) 0.4 %; Eosinophils # (auto) 0.02 K/uL (0.00-0.50); Eosinophils % (auto) 0.4 %; Hematocrit (blood only) 40.1 % (42.0-52.0); Hemoglobin 13.6 g/dl (14.0-18.0); Immature Granulocytes # (auto) 0.01 K/uL (0.01-0.20); Immature Granulocytes % (auto) 0.2 %; Lymphocytes # (auto) 0.91 K/uL (1.20-3.40); Lymphocytes % (auto) 16.6 %; Mean Corpuscular Hemoglobin 31.1 pg (25.0-34.0); Mean Corpuscular Hgb Conc 33.9 g/dL (32.0-36.0); Mean Corpuscular Volume 91.6 fL (80.0-100.0); Mean Platelet Volume 10.2 fL (9.4-12.4); Monocytes # (auto) 0.92 K/uL (0.11-0.59); Monocytes % (auto) 16.8 %; Neutrophils % (auto) 65.6 %; Platelet Count 180 K/uL (130-400); RDW Coefficient of Variation 12.4 % (11.5-14.5); RDW Standard Deviation 41.7 fL (36.4-46.3); Red Blood Count 4.38 M/uL (4.70-6.10); White Blood Count 5.48 K/ul (4.8-10.8)
[2023-11-15 04:34] LABS: BUN Creatinine Ratio 10.1 (10-20); C Reactive Protein 0.78 mg/dl (0-0.5); Calcium 8.4 mg/dl (8.6-10.3); Creatinine Clr Calc Pharmacy 140.9 ml/min; Est GFR (African American) 145.7 ml/min; Est GFR (Non-African American) 125.7 ml/min; Potassium 3.9 mmol/L (3.5-5.1)
[2023-11-15] MEDS ORDERED: LORazepam 1 MG in SYRINGE 0.5 ML IV PRN (06:05)
[2023-11-15] MEDS: MULTIVITAMIN TAB PO SCH (08:44)
[2023-11-15] MEDS: THIAMINE HCL 100 MG in SYRINGE 9 ML IV ONE (08:44)
[2023-11-15] MEDS: FOLIC ACID 1 MG TAB PO SCH (08:44)
[2023-11-15] MEDS: ENOXAPARIN INJ 40 MG/0.4 ML SYR SQ SCH (08:45)
--- OUTSIDE RECORDS SUMMARY | 2023-11-15 09:22 | External Medical Summary | Summary of Care ---
Author Name Unknown Organization [facility] Address [address] [place] [address] Phone [phone] Care Team Providers Care Green Chainer Name Role Phone Unavailable Primary Care Provider Unavailabl e Reason for Visit * Reason Comments Hand Injury * Auth/Cert Specialty Diagnoses / Procedures Referred By Contac t Referred To Contact [facility] [address] [place] [address] Phone: [phone] Emergency Medicine [facility] [address] [place] [address] Referral ID Status Reason Start Date Expiration Date Visits Re quested Visits Authorized [id number] Encounter Details Date Type Department Care Team (Late st Contact Info) Description 09/08/2023 11:45 PM EDT - 09/09/2023 2:49 AM EDT Emergency [facility] Emergency Department ([facility]) [address] [place] [address] Calin Mandel, DO [address] [place] [address] Discharge Disposition: Left ED Without Being Seen Allergies Active Allergy Reactions Criticality Noted Date Comments Penicillins High 08/28/2011 hives documented as of this encounter (statuses as of 09/09/2023) Medications Medication Sig Dispensed Refills Start Date End Date Status busPIRone HCl 15 MG Oral Tablet (Buspar) Take 1 Tablet by mouth in the morning and 1 Tablet at noon and 1 Tablet before bedtime. 0 07/02/2022 Active cloNIDine HCl 0.2 MG Oral Tablet (Catapres) TAKE 1 TABLET BY MOUTH TWICE A DAY NEEDED TAKE FOR ANXIETY 0 07/16/2022 Active Cefuroxime Axetil 500 MG Oral Tablet (Ceftin) Take 1 Tablet by mouth in the morning and 1 Tablet before bedtime. 14 Tablet 0 02/25/2023 Active oxyCODONE-Acetaminoph en 5-325 MG Oral Tablet (Percocet) Take 1 Tablet by mouth every 6 hours as needed for Pain, Severe. 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 He is treated at [facility] neurology by Dr. Munoz. Optic disc atrophy, bilateral 08/29/2015 Optic neuritis 02/24/2015 Bipolar 1 disorder, depressed, mild 02/23/2015 Overview: Per psych eval 01/17. 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 Visual loss, both eyes unqualified 01/10/2011 Overview: Neuromyelitis Optica documented as of this encounter (statuses as of 09/09/2023) Resolved Problems Problem Noted Date Diagnosed Date Resolved Date Knee pain, left 06/10/2015 10/10/2015 Overview: Tibial tubercle apophysitis Wheeze 01/19/2015 11/27/2017 Urachal cyst 09/16/2012 10/21/2012 Overview: Partial cystectomy and bladder cyst removal 2012 Constipation 07/15/2012 01/10/2015 Overview: ICD-10 update of inactive term GERD (gastroesophageal reflux disease) 07/15/2012 01/10/2015 Hyperglycemia 07/11/2012 01/10/2015 Proteinuria 05/27/2012 11/27/2017 Hypertrophy of tonsils with hypertrophy of adenoids 02/18/2012 01/10/2015 Overview: T&A 2013 Mixed emotional features as adjustment reaction 02/08/2011 06/08/2015 documented as of this encounter (statuses as of 09/09/2023) Immunizations Name Administration Dates Next Due DTaP Dipth/Tet/Acell Pertussis (Infanrix), Peds 10/13/2003,10/07/2000,1999,06/04,1999 HIB PRP-T, 4 dose (ActHib) 05/28/2000,,1999,04/03 HPV Vaccine, 4-Valent 04/21/2014,03/03/2014 HPV Vaccine, 9-Valent 01/14/2019 Hep A - Hepatitis A (ped/ado le, 1-18 Yrs) 03/19/2011,05/08/2010 Hepatitis B, 0-19 yrs 1999,1999,03/07 IPV - Polio Virus Vaccine (Inact) 2002,1999,1999,04/03 Meningococcal Conjugate Vacc ine (Menactra/Menveo) 03/20/2010 PPD 01/15/2011 Pneumococcal Polysaccharide PPV23 (Pneumovax) 01/14/2019 Seasonal Influenza, Split, I IV3, With Preserve, Inj 03/03/2014 TD, Preservative Free 01/09/2016 TDAP (age 11 and older)(Adacel) 03/20/2010 Varicella Vaccine (Chicken Pox) 03/20/2010,01/27 documented as of this encounter Social History Tobacco Use Types Packs/Day Years Used Date Smoking Tobacco: Some Days Cigarettes 6.3 Started: 2018 Vaporizer Passive Smoke Exposure: Past Smokeless Tobacco: Never Comments:07/29/22 1 cig/day K HB Alcohol Use Standard Drinks/Week Comments Yes 0 (1 standard drink = 0.6 oz pur e alcohol) Social AUDIT-C Answer Date Recorded Frequency of Alcohol Consumption Never 04/07/2018 Average Number of Drinks Not on file 018 Frequency of Binge Drinking Not on file 08/2017 PHQ-2 Answer Date Recorded PHQ-2 Score 0 08/05/2018 Sex and Gender Information Value Date Recorded Sex Assigned at Male 08/05/2018 4:26 PM EDT Gender Identity Male 08/05/2018 4:26 PM EDT Sexual Orientation Straight 08/05/2018 4: 26 PM EDT Job Start Date Occupation Industry Not on file Not on file Not on file documented as of this encounter Last Filed Vital Signs Vital Sign Reading Time Taken Comments Blood Pressure 112/69 09/09/2023 1:44 AM EDT Pulse 51 09/09/2023 1:44 AM EDT Temperature 36.2 C (97.2 F) 09/08/2023 11:45 PM E DT Respiratory Rate 16 09/09/2023 1:44 AM EDT Oxygen Saturation 100% 09/08/2023 11:45 PM EDT Inhaled Oxygen Concentration - - Weight - - Height - - Body Mass Index - - documented in this encounter Functional Status Functional Status Response Date of Assess ment Are you deaf or do you have serious difficulty h earing? No 07/22/2022 Are you blind or do you have serious difficulty seeing, even when wearing glasses? Yes 07/22/2022 Do you have serious difficul ty walking or climbing stairs? (5 years old or older) No 07/22/2022 Do you have difficulty dress ing or bathing? (5 years old or older) No 07/22/2022 Because of a physical, menta l, or emotional condition, do you have difficulty doing errands alone such as visiting a doctor s office or shopping? (15 years old or older) Yes 07/23/19 23 Cognitive Status Response Date of Assessm ent Because of a physical, menta l, or emotional condition, do you have serious difficulty concentrating, remembering, or making decisions? (5 years old or older) No 07/22/2022 documented as of this encounter ED Notes * Calin Mandel DO - 09/09/2023 2:49 AM EDT Had signed up for pt but casino banker let me know LWBS XRs reviewed, do not see acute fx. Reports negative * Radha Wilde RN - 09/08/2023 11:46 PM EDT Pt states that he was playing basketball today and his left thumb bent backwards. 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 documented in this encounter Miscellaneous Notes * ED User Experience Team Lead Note - Radha Garcia RN - 09/09/2023 2:48 AM EDT Provider signed up for pt but had not been in to see the pt yet. Pt left before the provider could see the pt. Pt left the department at this time. documented in this encounter Plan of Treatment Health Maintenance Due Date Last Done Comments HIV Screening 2014 Pneumococcal Vaccine: Pediatrics (0 to 5 Years) and At-Risk Patients (6 to 64 Years) (2 of 2 - PCV) 01/15/2020 01/14/2019 COVID-19 Vaccine (1 - 2022-24 season) 2023 Influenza Vaccine (FLU shot) (Season Ended) 2024 03/03/2014 DTaP,Tdap,and Td Vaccines (8 - Td or Tdap) 01/08/2026 01/09/2016, 03/20/2010, 10/13/2003, Additional history exists MENINGOCOCCAL (MENACTRA/MENVEO) Aged Out 03/20/2010 No longer eligible based on patient's age to complete this topic GARDASIL-HPV IMMUNIZATION SERIES Completed 01/14/2019, 04/21/2014, 03/03/2014 documented as of this encounter Medical Devices Not on filedocumented as of this encounter Procedures Procedure Name Priority Date/Time Associated Diagnosis Comments XR HAND 3 OR MORE VIEWS STAT 09/09/2023 12:11 AM EDT XR WRIST 3 OR MORE VIEWS STAT 09/09/2023 12:11 AM EDT documented in this encounter Results * XR WRIST 3 OR MORE VIEWS (09/09/2023 12:11 AM EDT) Anatomical Region Laterality Modality Upper Extremity, Wrist Digital R adiography 09/09/2023 12:0 3 AM EDT Impressions 09/09/2023 2:14 AM EDT IMPRESSION: No acute findings. THIS DOCUMENT HAS BEEN ELECTRONICALLY SIGNED BY BILL RAMSEY MD Narrative 09/09/2023 2:14 AM EDT PROCEDURE INFORMATION: Exam: XR Left Wrist Exam date and time: 09/09/2023 12:03 AM Age: 23 years old Clinical indication: Other: PT injured left proximal thumb while playing basketball today; Pain TECHNIQUE: Imaging protocol: Radiologic exam of the left wrist. Views: 3 or more views. COMPARISON: DX XR HAND 3 OR MORE VIEWS 09/09/2023 12:01 AM FINDINGS: Bones/joints: Normal. Soft tissues: Normal. Procedure Note Bill Ramsey MD - 09/09/2023 PROCEDURE INFORMATION: Exam: XR Left Wrist Exam date and time: 09/09/2023 12:03 AM Age: 23 years old Clinical indication: Other: PT injured left proximal thumb while playing basketball today; Pain TECHNIQUE: Imaging protocol: Radiologic exam of the left wrist. Views: 3 or more views. COMPARISON: DX XR HAND 3 OR MORE VIEWS 09/09/2023 12:01 AM FINDINGS: Bones/joints: Normal. Soft tissues: Normal. IMPRESSION IMPRESSION: No acute findings. THIS DOCUMENT HAS BEEN ELECTRONICALLY SIGNED BY BILL RAMSEY MD Calin Mandel DO RADIOLOGY (RAD GENERAL) * XR HAND 3 OR MORE VIEWS (09/09/2023 12:11 AM EDT) Anatomical Region Laterality Modality Upper Extremity, Hand Digital Ra diography 09/09/2023 12:0 1 AM EDT Impressions 09/09/2023 2:15 AM EDT IMPRESSION: No acute findings. THIS DOCUMENT HAS BEEN ELECTRONICALLY SIGNED BY BILL RAMSEY MD Narrative 09/09/2023 2:15 AM EDT PROCEDURE INFORMATION: Exam: XR Left Hand Exam date and time: 09/09/2023 12:01 AM Age: 23 years old Clinical indication: Other: PT injured left proximal thumb while playing basketball today; Pain TECHNIQUE: Imaging protocol: Radiologic exam of the left hand. Views: 3 or more views. COMPARISON: DX FORARM 07/13/2020 12:08 AM FINDINGS: Bones/joints: Normal. Soft tissues: Normal. Procedure Note Bill Ramsey MD - 09/09/2023 PROCEDURE INFORMATION: Exam: XR Left Hand Exam date and time: 09/09/2023 12:01 AM Age: 23 years old Clinical indication: Other: PT injured left proximal thumb while playing basketball today; Pain TECHNIQUE: Imaging protocol: Radiologic exam of the left hand. Views: 3 or more views. COMPARISON: DX FORARM 07/13/2020 12:08 AM FINDINGS: Bones/joints: Normal. Soft tissues: Normal. IMPRESSION IMPRESSION: No acute findings. THIS DOCUMENT HAS BEEN ELECTRONICALLY SIGNED BY BILL RAMSEY MD Calin Mandel DO RADIOLOGY (RAD GENERAL) documented in this encounter Administered Medications Inactive Administered Medications - up to 3 most recent administrations Medication Order MAR Action Action Date Dose Rate Site Acetaminophen (Tylenol) tab 650 mg 650 mg, Oral, ONCE, On Fri09/09/23 at 0030, For 1 dose, Maximum of 4 grams (4000 mg) per day. Given 09/08/2023 11:54 PM EDT 650 mg documented in this encounter Active and Recently Administered Medications Times are shown in EDT. Scheduled Medication Order 09/07/2023 09/08/2023 09/09/2023 Acetaminophen (Tylenol) tab 650 mg (COMPLETED) 650 mg, Oral, ONCE, On Fri09/09/23 at 0030, For 1 dose, Maximum of 4 grams (4000 mg) per day. 2354 (Given - Provider: Christian Garcia RN) documented in this encounter Advance Directives Latest Code Status on File Code Status Date Activated Date Inactivated Comments Full Code 07/21/2022 6:38 PM 07/22/2022 4:30 PM This order reflects the patients wishes and were consensually agreed upon. Question Answer Comments Discussion of Advance Directives occurred with: Patient Does the patient have a Living Will? No Does the patient have Health Care Power of Life Claims Examiner? No Code Status History Code Status Date Activated Date Inactivated Comments Full Code 01/05/2019 4:40 PM 01/06/2019 10:44 PM This o rder reflects the patients wishes and were consensually agreed upon. Full Code 11/25/2017 9:22 PM 11/28/2017 9:37 PM This order reflects the patients wishes and were consensually agreed upon. Question Answer Comments Discussion of Advance Directives occurred with: Patient Full Code 11/24/2017 7:55 PM 11/25/2017 7:27 PM This order reflects the patients wishes and were consensually agreed upon. Question Answer Comments Discussion of Advance Directives occurred with: Not Discussed Does the patient have a Living Will? No Does the patient have Health Care Power of Life Claims Examiner? No Full Code 07/01/2014 6:31 AM 07/04/2014 8:06 PM This o rder reflects the patients wishes and were consensually agreed upon. Question Answer Comments Discussion of Advance Directives occurred with: Not Discussed Does the patient have a Living Will? No Does the patient have Health Care Power of Life Claims Examiner? No
--- NOTE | 2023-11-15 11:50 | Electrocardiogram Report ---
Test Reason : Blood Pressure : / mmHG Vent. Rate : 068 BPM Atrial Rate : 068 BPM P-R Int : 150 ms QRS Dur : 114 ms QT Int : 404 ms P-R-T Axes : 000 103 141 degrees QTc Int : 429 ms Normal sinus rhythm with sinus arrhythmia Rightward axis Nonspecific ST and T wave abnormality Abnormal ECG No previous ECGs available Confirmed by Casper Martines ([id number]) on 11/15/2023 11:49:49 AM Referred By: REFERRED SELF Confirmed By:Casper Martines
--- OUTSIDE RECORDS SUMMARY | 2023-11-15 12:08 | External Medical Summary | Summary of Care ---
Author Name Unknown Organization [facility] Address [address] [place] [address] Phone [phone] Care Team Providers Care Clean Energy Policy Analyst Name Role Phone Unavailable Primary Care Provider Unavailabl e Reason for Visit * Reason Comments Back Pain * Auth/Cert Specialty Diagnoses / Procedures Referred By Contac t Referred To Contact [facility] [address] [place] [address] Phone: [phone] Emergency Medicine [facility] [address] [place] [address] Referral ID Status Reason Start Date Expiration Date Visits Re quested Visits Authorized [id number] Encounter Details Date Type Department Care Team (Late st Contact Info) Description 11/14/2023 4:19 PM EDT - 11/14/2023 4:26 PM EDT Emergency [facility] Emergency Department ([facility]) [address] [place] [address] Roberto Kulkarni, DO [address] [place] [address] Discharge Disposition: Left ED Without Being Seen Allergies Active Allergy Reactions Criticality Noted Date Comments Penicillins High 08/28/2011 hives documented as of this encounter (statuses as of 11/15/2023) Medications Medication Sig Dispensed Refills Start Date End Date Status busPIRone HCl 15 MG Oral Tablet (Buspar) Take 1 Tablet by mouth in the morning and 1 Tablet at noon and 1 Tablet before bedtime. 07/02/2022 Active cloNIDine HCl 0.2 MG Oral Tablet (Catapres) TAKE 1 TABLET BY MOUTH TWICE A DAY NEEDED TAKE FOR ANXIETY 07/16/2022 Active Cefuroxime Axetil 500 MG Oral Tablet (Ceftin) Take 1 Tablet by mouth in the morning and 1 Tablet before bedtime. 14 Tablet 02/25/2023 Active oxyCODONE-Acetaminoph en 5-325 MG Oral Tablet (Percocet) Take 1 Tablet by mouth every 6 hours as needed for Pain, Severe. 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 He is treated at [facility] neurology by Dr. Munoz. Optic disc atrophy, bilateral 08/29/2015 Optic neuritis 02/24/2015 Bipolar 1 disorder, depressed, mild 02/23/2015 Overview: Per psych eval 01/17. 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 Visual loss, both eyes unqualified 01/10/2011 Overview: Neuromyelitis Optica documented as of this encounter (statuses as of 11/15/2023) Resolved Problems Problem Noted Date Diagnosed Date [...] as of this encounter (statuses as of 11/15/2023) Immunizations Name Administration Dates Next Due DTaP Dipth/Tet/Acell Pertussis (Infanrix), Peds 10/13/2003,10/07/2000,1999,06/04,1999 HIB PRP-T, 4 Dose, PF, IM (H iberix, ActHib) 05/28/2000,1999,1999,04/03 HPV Vaccine, 4-Valent 04/21/2014,03/03/2014 HPV Vaccine, 9-Valent 01/14/2019 Hepatitis A, Ped/Adol., 18 y ear and below, 2-Dose 03/19/2011,05/08/2010 Hepatitis B, 0-19 yrs 1999,1999,03/07 IPV - Polio Virus Vaccine (Inact) 2002,1999,1999,04/03 Meningococcal Conjugate Vacc ine (Menactra/Menveo) 03/20/2010 PPD 01/15/2011 Pneumococcal Polysaccharide PPV23 (Pneumovax) 01/14/2019 Seasonal Influenza, Split, I IV3, With Preserve, Inj 03/03/2014 TD, Preservative Free 01/09/2016 TDAP, Age 7 and older, IM (Adacel) 03/20/2010 Varicella Vaccine (Chicken Pox) 03/20/2010,01/27 documented as of this encounter Social History Tobacco Use Types Packs/Day Years Used Date Smoking Tobacco: Some Days Cigarettes Started: 2017 Vaporizer Started: 11/12; Last attempted to quit: 07/22/2022 Passive Smoke Exposure: Past Smokeless Tobacco: Never Comments:07/29/22 1 cig/day K HB Alcohol Use Standard Drinks/Week Comments Yes 0 (1 standard drink = 0.6 oz pur e alcohol) Social AUDIT-C Answer Date Recorded Frequency of Alcohol Consumption Never 04/07/2018 Average Number of Drinks Not on file 018 Frequency of Binge Drinking Not on file 08/2017 PHQ-2 Answer Date Recorded PHQ-2 Score 0 08/05/2018 Utilities Answer Date Recorded Do you have trouble paying y our heating, water, or electric bill? (Adult - for ages 18 years and over) Not on file 10/21/2023 Is your family able to pay t he heat, water, or electric bill? (Household - for ages 0-17 years) Not on file 10/21/2023 Does your family have access to good internet? (Household - for ages 0-17 years) Not on file 10/21/2023 Social Connections Answer Date Recorded How often do you feel lonely or isolated from those around you? (Adult - for ages 18 years and over) Not on file 10/21/2023 Sex and Gender Information Value Date Recorded Sex Assigned at Male 08/05/2018 4:26 PM EDT Gender Identity Male 08/05/2018 4:26 PM EDT Sexual Orientation Straight 08/05/2018 4: 26 PM EDT Job Start Date Occupation Industry Not on file Not on file Not on file documented as of this encounter Last Filed Vital Signs Vital Sign Reading Time Taken Comments Blood Pressure 104/53 11/14/2023 3:15 PM EDT Pulse 92 11/14/2023 3:15 PM EDT Temperature 37.7 C (99.9 F) 11/14/2023 2:15 PM ED T Respiratory Rate 20 11/14/2023 3:15 PM EDT Oxygen Saturation 100% 11/14/2023 2:15 PM EDT Inhaled Oxygen Concentration - - Weight 64.4 kg (142 lb) 11/14/2023 2:15 PM EDT Height 175.3 cm (5' 9") 11/14/2023 2:15 PM EDT Body Mass Index 20.97 11/14/2023 2:15 PM EDT documented in this encounter Functional Status Functional [...] (15 years old or older) Yes 07/23/19 Cognitive Status Response Date of Assessm ent Because of a physical, menta l, or emotional condition, do you have serious difficulty concentrating, remembering, or making decisions? (5 years old or older) No 07/22/2022 documented as of this encounter ED Notes * Wei Childress RN - 11/14/2023 2:14 PM EDT Pt states left lower back pain starting yesterday. Pt reports today he has tingling to the leg and is slightly weaker in that leg. Pt reports he feels like he could pass out as well/ documented in this encounter Miscellaneous Notes * ED Alteration Inspector Note - Uyen Tate RN - 11/14/2023 4:22 PM EDT lwbs documented in this encounter Plan of Treatment Health Maintenance Due Date Last Done Comments HIV Screening 2014 Pneumococcal Vaccine: Pediatrics (0 to 5 Years) and At-Risk Patients (6 to 64 Years) (2 of 2 - PCV) 01/15/2020 01/14/2019 COVID-19 Vaccine (1 - 2022-24 season) 2023 Influenza Vaccine (FLU shot) (#1) 2024 03/03/2014 DTaP,Tdap,and Td Vaccines (8 - Td or Tdap) 01/08/2026 01/09/2016, 03/20/2010, 10/13/2003, Additional history exists MENINGOCOCCAL (MENACTRA/MENVEO) Aged Out 03/20/2010 No longer eligible based on patient's age to complete this topic HPV (Gardasil) Vaccine Completed , 04/21/2014, 03/03/2014 documented as of this encounter Medical Devices Not on filedocumented as of this encounter Advance Directives * Full Code (Latest Code Status on File) Date Activated Date Inactivated Comments 07/21/2022 6:38 PM 07/22/2022 4:30 PM This order r eflects the patients wishes and were consensually agreed upon. Question Answer Comments Discussion of Advance Directives occurred with: Patient Does the patient have a Living Will? No Does the patient have Health Care Power of Attor jamia? No * Full Code Date Activated Date Inactivated Comments 01/05/2019 4:40 PM 01/06/2019 10:44 PM This order re flects the patients wishes and were consensually agreed upon. * Full Code Date Activated Date Inactivated Comments 11/25/2017 9:22 PM 11/28/2017 9:37 PM This order r eflects the patients wishes and were consensually agreed upon. Question Answer Comments Discussion of Advance Directives occurred with: Patient * Full Code Date Activated Date Inactivated Comments 11/24/2017 7:55 PM 11/25/2017 7:27 PM This order r eflects the patients wishes and were consensually agreed upon. Question Answer Comments Discussion of Advance Directives occurred with: Not Discussed Does the patient have a Living Will? No Does the patient have Health Care Power of Attor jamia? No * Full Code Date Activated Date Inactivated Comments 07/01/2014 6:31 AM 07/04/2014 8:06 PM This order re flects the patients wishes and were consensually agreed upon. Question Answer Comments Discussion of Advance Directives occurred with: Not Discussed Does the patient have a Living Will? No Does the patient have Health Care Power of Attor jamia? No
--- NOTE | 2023-11-15 13:39 | Neurology Consultation ---
Date of Consultation November 15, 2023 Assessment & Plan (1) Left-sided weakness: This is likely related to a pseudo exacerbation due to COVID infection. The patient denied over and over again that he drinks. There has been multiple missed appointments at [facility]. LHON Mt DNA - negative (2010) AQP4-IgG - negative (2010, 2016) Paraneoplastic Panel - negative (2011) Pyruvate-Lactate - negative (2017) Vit D 25 OH - 16.9 (2018) Plan Noted that MRI of the brain, orbits, C and T-spine with and without contrast was ordered, will follow. Check vitamin D level. Continue to supplement thiamine and. folic acid Can start prednisone 60 mg with a tapering dose to help with symptoms, will change recommendations if MRIs show any enhancement. Supportive care for his COVID infection Telehealth Consultation Telehealth Information Telehealth Information: I performed this visit using a real-time telehealth connection between my location and the patients location ([facility]). After connecting through interactive tele-video, patient was identified by name and date of and/or wristband check.Patient (or authorized healthcare loan representative) was informed that this was a telemedicine visit and it was being conducted confidentially over secure lines. My office door was closed and no one else was present in the room with me.Patient (or authorized healthcare loan representative) provided consent to proceed with the visit, expressed an understanding of privacy and security of the telemedicine visit, and gave permission to have a hospital loan representative in the room in order to assist with the visit and to conduct portions of the visit, as needed. I informed the patient (or authorized healthcare loan representative) that I reviewed their record and presented the opportunity for them to ask any questions regarding the visit today. The patient agreed to participate. 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 The patient tells me that over the past 2 days he has been having worsening blurry vision and left-sided weakness and numbness, he has been feeling dizzy lightheaded, has been having fevers and chills today but with cough. So he decided to come to the emergency room today. Prior to this he was able to walk without a walker but now he feels unsteady on his legs, he has back pain every time he tries to move his left leg. He has been having fevers and chills, he is currently on no medications as outpatient Allergies Allergy/AdvReac Type Severity Reaction Status Date / Time Penicillins Allergy Intermediate RED RASH & Verified 11/14/23 21:49 SWELLING Home Medications Medication Instructions Recorded Confirmed Type No Known Home Medications 11/14/23 11/14/23 History Patient History Medical History No pertinent past medical history Social History Smoking Status: Current every day smoker Tobacco Type: Cigarettes Second Hand Exposure: Yes; Do You Dip or Chew Tobacco: No; Tobacco Cessation Education Requested by Patient: No Hx Alcohol Use: Yes Alcohol type: beer Hx Substance Use: Yes Last Used Substance: Unknown Substance Use Type Other:: Medical marijuana Preferred Language: Canadian Communication Ability: Effective Tire Buster Required: No Beliefs That Will Affect Care: None Current Living Situation: Parent Current Living Situation Comment: Lives with mother Other Information That Helps Us Care for You: No Feels Safe at Home: Yes Safety Concerns: Feels Safe At This Time Review of Systems Negative except for the ones mentioned in HPI Physical Exam General Constitutional: Appearance normally developed Head and face: normocephalic and atraumatic Eyes: no ptosis, no anisocoria, and no dysconjugate gaze Respiratory: normal effort Cardiovascular: regular rhythm and regular rate Abdomen: non distended Skin: no rashes, lesions, or ulcers noted Psychiatric: normal judgement and insight, normal mood, and normal affect NEUROLOGIC EXAMINATION: Mental Status:alert, oriented to time, place, person, normal recent memory, normal remote memory, normal attention span, normal concentration, normal language and normal fund of knowledge Cranial Nerves: CN 2 -he can see hand movement CN 3, 4, 6 - extra-ocular movements intact and no nystagmus CN 5 - facial sensation intact CN 7 - no facial asymmetry CN 8 - intact hearing CN 9, 10 - palate symmetric, normal gag CN 11 - good shoulder shrug CN 12 - tongue midline MOTOR: Strength was at least antigravity throughout, mild left upper extremity pronator drift and There were no abnormal movements SENSATION: intact and symmetric to pinprick, light touch, vibration and joint position GAIT: Deferred COORDINATION: no ataxia with finger to nose testing and heel to zamora testing REFLEXES: cannot assess over telemedicine Results & Data Vital Signs (Past 12 Hours) Vital Signs Temp Pulse Pulse Resp BP BP Pulse Ox 11/15/23 12:00 62 17 118/53 L 11/15/23 11:03 61 20 140/65 98 11/15/23 10:30 52 L 20 128/60 98 11/15/23 10:09 66 21 119/59 L 98 11/15/23 09:30 48 L 18 117/65 99 11/15/23 09:06 52 L 19 121/73 99 11/15/23 08:33 71 18 127/66 99 11/15/23 08:00 47 L 16 132/80 98 11/15/23 07:30 36.6 C 52 L 16 115/61 98 11/15/23 06:09 52 L 13 110/64 99 11/15/23 05:27 42 L 14 113/69 100 11/15/23 05:09 40 L 14 111/60 97 11/15/23 04:53 36.6 C 44 L 16 99/63 L 99 11/15/23 04:30 48 L 16 99/63 L 96 11/15/23 04:00 47 L 14 107/62 97 11/15/23 03:03 52 L 11/15/23 02:30 48 L 16 108/59 L 97 O2 Del Method 11/15/23 12:00 11/15/23 11:03 Room Air 11/15/23 10:30 11/15/23 10:09 Room Air 11/15/23 09:30 Room Air 11/15/23 09:06 Room Air 11/15/23 08:33 Room Air 11/15/23 08:00 Room Air 11/15/23 07:30 Room Air 11/15/23 06:09 Room Air 11/15/23 05:27 Room Air 11/15/23 05:09 Room Air 11/15/23 04:53 Room Air 11/15/23 04:30 Room Air 11/15/23 04:00 Room Air 11/15/23 03:03 11/15/23 02:30 Room Air Laboratory Results Abnormal lab results 11/14/23 11/14/23 11/15/23 Range/Units 17:10 Unknown 03:35 RBC 4.38 L (4.70-6.10) M/uL Hgb 13.6 L (14.0-18.0) g/dl Hct 40.1 L (42.0-52.0) % Lymph # (Auto) 0.91 L (1.20-3.40) K/uL [place] # (Auto) 0.92 H (0.11-0.59) K/uL Chloride 108 H (98-107) mmol/L Glucose 101 H 111 H (70-99(Fasting)) mg/dl Calcium 8.4 L (8.6-10.3) mg/dl C-Reactive Protein 0.78 H (0-0.5) mg/dl Globulin 2.2 L (2.5-4.0) gm/dl Albumin/Globulin Ratio 2.1 H (0.9-2) Ur Specific [place] > 1.045 H (1.000-1.030) SARS-CoV-2 (PCR) DETECTED A (NotDetected) Diagnostic Findings Head CT 11/14/23 16:57 CT SCAN OF THE BRAIN WITHOUT IV CONTRAST CLINICAL HISTORY: Left upper and lower extremity numbness. Neurological deficit. Strokelike symptoms. COMPARISON STUDY: CT of the brain dated 01/19/2021. TECHNIQUE: Unenhanced axial CT scan of the brain is performed from the vertex to the skull base. A dose lowering technique was utilized adhering to the principles of ALARA. CT DOSE: 625.8 mGy.cm FINDINGS: Brain parenchyma: The brain parenchyma is normal in appearance. There is no hemorrhage, mass effect, or evidence of acute territorial ischemia by CT criteria. Luque-white matter differentiation is preserved. No extra-axial fluid collection is seen. Ventricles, sulci, cisterns: Normal in configuration. Intracranial vasculature: The visualized intracranial vasculature at the skull base is normal in appearance. Calvarium: Unremarkable. Sinuses and mastoids: The visualized paranasal sinuses are clear. The mastoid air cells are well pneumatized. Orbits: The bony orbits are grossly intact. IMPRESSION: No acute intracranial abnormality. ACT 112: Negative or not required by law. Electronically signed by: Agustin Paz M.D. 11/14/2023 5:44 PM Abdomen/Pelvis CT 11/14/23 19:10 Exam(s): CT ABDOMEN + PELVIS With Contrast IV Amt: 119 ml optiray 320 EXAM: CT Abdomen and Pelvis With Intravenous Contrast CLINICAL HISTORY: Reason for exam: abdominal pain, fever, left flank pain. TECHNIQUE: Axial computed tomography images of the abdomen and pelvis with intravenous contrast. CTDI is 14.43 mGy and DLP is 732.91 mGy-cm. Automated exposure control was utilized for the study. A dose lowering technique was utilized adhering to the principles of ALARA. CONTRAST: Patient received 119 ml optiray 320 of IV contrast COMPARISON: No relevant prior studies available. FINDINGS: ABDOMEN: Liver: Unremarkable. Gallbladder and bile ducts: Unremarkable. Pancreas: Unremarkable. Spleen: Unremarkable. Adrenals: Unremarkable. Kidneys and ureters: Normal enhancement of the kidneys. No hydronephrosis. No stones. Stomach and bowel: Unremarkable. PELVIS: Appendix: Normal appendix. Bladder: Unremarkable. Reproductive: Hyperemia around the prostate and seminal vesicles. ABDOMEN and PELVIS: Intraperitoneal space: Unremarkable. No free air. No significant fluid collection. Bones/joints: Bilateral pars defects at L5. No acute osseous abnormality. Soft tissues: Unremarkable. Vasculature: Unremarkable. Lymph nodes: Unremarkable. IMPRESSION: Hyperemia around the prostate and seminal vesicles. Correlate for infection. This may simply represent robust venous plexus. Electronically signed by: Jem Ibrahim MD 11/14/23 22:[address] 11/14/23 19:10 Exam(s): CT C SPINE EXAM: CT Cervical Spine Without Intravenous Contrast CLINICAL HISTORY: Reason for exam: Neck pain, fever. TECHNIQUE: Axial computed tomography images of the cervical spine without intravenous contrast. CTDI is 11.87 mGy and DLP is 5.94 mGy-cm. Automated exposure control was utilized for the study. A dose lowering technique was utilized adhering to the principles of ALARA. COMPARISON: No relevant prior studies available. FINDINGS: Vertebrae: No acute fracture. No malalignment. Disc spaces are preserved. No evidence of discitis or osteomyelitis. No spinal canal or foraminal stenosis. Soft tissues: Unremarkable. IMPRESSION: No acute abnormality within the cervical spine. Electronically signed by: Jem Ibrahim MD 11/15/23 00:05 AM Chest CTA 11/14/23 19:10 Exam(s): CTA CHEST IV Amt: 119 ml optiray 320 EXAM: CT Angiography Chest With Intravenous Contrast CLINICAL HISTORY: Reason for exam: PE. TECHNIQUE: Axial computed tomographic angiography images of the chest with intravenous contrast. CTDI is 17.28 mGy and DLP is 614.03 mGy-cm. Automated exposure control was utilized for the study. A dose lowering technique was utilized adhering to the principles of ALARA. MIP reconstructed images were created and reviewed. COMPARISON: No relevant prior studies available. FINDINGS: Pulmonary arteries: Unremarkable. No pulmonary embolism. Aorta: No acute findings. Normal caliber. No dissection. Lungs: No consolidation or interstitial edema. Paraseptal blebs at the apices. Airways are clear. Pleural space: Unremarkable. Heart: Unremarkable. Bones/joints: No acute fracture. Soft tissues: Unremarkable. Lymph nodes: Unremarkable. IMPRESSION: No acute findings in the visualized arteries of the chest. Electronically signed by: Jem Ibrahim MD 11/14/23 22:[address] 11/14/23 19:10 Exam(s): CT L SPINE With Contrast IV Amt: 119 ml optiray 320 EXAM: CT Lumbar Spine With Intravenous Contrast CLINICAL HISTORY: Reason for exam: Low back pain, fever, paresthesias. TECHNIQUE: Axial computed tomography images of the lumbar spine with intravenous contrast. CTDI is 14.43 mGy and DLP is 732.91 mGy-cm. Automated exposure control was utilized for the study. A dose lowering technique was utilized adhering to the principles of ALARA. CONTRAST: Patient received 119 ml optiray 320 of IV contrast COMPARISON: No relevant prior studies available. FINDINGS: No acute fracture or malalignment. Bilateral pars defects at L5. Trace anterolisthesis at L5-S1. Vertebral body heights are preserved. No canal stenosis. Mild foraminal stenosis at L4-5 and L5-S1. No evidence of discitis osteomyelitis. Soft tissues are unremarkable. IMPRESSION: No acute abnormality in the lumbar spine. Electronically signed by: Jem Ibrahim MD 11/14/23 22:[address] 11/14/23 19:10 Exam(s): CT T SPINE IV Amt: 119 ml optiray 320 EXAM: CT Thoracic Spine With Intravenous Contrast CLINICAL HISTORY: Reason for exam: Back pain, fever. TECHNIQUE: Axial computed tomography images of the thoracic spine with intravenous contrast. CTDI is 17.28 mGy and DLP is 614.03 mGy-cm. Automated exposure control was utilized for the study. A dose lowering technique was utilized adhering to the principles of ALARA. CONTRAST: Patient received 119 ml optiray 320 of IV contrast COMPARISON: No relevant prior studies available. FINDINGS: Vertebrae: Unremarkable. No acute fracture. Other bones/joints: No acute fracture or malalignment. No discitis osteomyelitis. No significant disc disease or stenosis. Soft tissues: Unremarkable. IMPRESSION: No acute abnormality within the thoracic spine. Electronically signed by: Jem Ibrahim MD 11/14/23 23:55 PM Medications Administered Home Medications Medication Instructions Recorded Confirmed Last Taken No Known Home Medications 11/14/23 11/14/23 Unknown Active Medications Generic Name Dose Route Start Last Admin Trade Name Freq PRN Reason Stop Dose Admin Enoxaparin Sodium 40 mg 11/15/23 09:00 11/15/23 08:45 Enoxaparin Inj 40 Mg/0.4 Ml Syr SQ 12/15/23 08:59 40 mg QAM JOSSUE Administration Folic Acid 1 mg 11/15/23 09:00 11/15/23 08:44 Folic Acid 1 Mg Tab PO 12/15/23 08:59 1 mg QAM JOSSUE Administration Multivitamins 1 tab 11/15/23 09:00 11/15/23 08:44 Multivitamin Tab PO 12/15/23 08:59 1 tab QAM JOSSUE Administration
[2023-11-15] MEDS: LORazepam 0.5 MG TAB PO PRN (14:38)
[2023-11-15] MEDS: KETOROLAC TROMETHAMINE 15 MG/ML VIAL IV PRN (14:38)
--- NOTE | 2023-11-15 15:45 | Hospitalist Progress Note ---
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 NMOSD flareup secondary to COVID-19 illness Neurochecks MRI brain, orbit, spine Neurology consult Re: Neurologic symptoms, history NMOSD -follow MRI imaging -Check vitamin D level. -Continue to supplement thiamine and. folic acid -Can start prednisone 60 mg with a tapering dose to help with symptoms, will change recommendations if MRIs show any enhancement. -Supportive care for his COVID infection Covid Infection Noted on serology Pt asymptomatic supportive care as needed Hyperglycemia AM hgba1c pending Bradycardia EKG with NSR Has been having HR in 40s-50s Likely in setting of morphine use Continue to monitor on telemetry Prostate/Seminal Vesicles Hyperemia Noted on imaging Radiology also noes can be robust plexus Outpt followup ADHD mood disorder stable off maintenance medications ongoing tobacco/alcohol abuse Encourage cessation PAULY S at risk protocol, DT precautions Nicotine patch as needed Diet: regular DVT prophylaxis: Lovenox subcu Dispo: Home once medically stable Admission and Anticipated Discharge Date Admission Date: November 15, 2023 Subjective pt was seen while still down in the ED Notes he follows with Neurology Review of Systems Review of Systems: All systems reviewed & are unremarkable except as noted in Subjective Physical Exam Physical Exam: General: Alert, oriented. No acute distress Skin: No noted rashes or bruises Psych: Appropriate mood and affect HEENT: NC/AT CV: RRR Resp: no increased effort of breathing Extremities: No edema in lower extremities bilaterally. Results & Data Results & Data Vital Signs (Past 12 Hours) Vital Signs Temp Pulse Pulse Resp BP BP Pulse Ox 11/15/23 09:30 48 L 18 117/65 99 11/15/23 09:06 52 L 19 121/73 99 11/15/23 08:33 71 18 127/66 99 11/15/23 08:00 47 L 16 132/80 98 11/15/23 07:30 36.6 C 52 L 16 115/61 98 07/13/24 06:09 52 L 13 110/64 99 11/15/23 05:27 42 L 14 113/69 100 11/15/23 05:09 40 L 14 111/60 97 11/15/23 04:53 36.6 C 44 L 16 99/63 L 99 11/15/23 04:30 48 L 16 99/63 L 96 11/15/23 04:00 47 L 14 107/62 97 11/15/23 03:03 52 L 11/15/23 02:30 48 L 16 108/59 L 97 11/15/23 01:30 66 18 97/53 L 98 11/15/23 01:00 71 15 116/69 98 11/15/23 00:30 58 L 17 108/55 L 98 11/15/23 00:13 53 L 11/14/23 23:54 60 18 118/60 98 11/14/23 23:45 78 20 111/61 99 11/14/23 22:33 56 L 18 118/60 99 O2 Del Method 11/15/23 09:30 Room Air 11/15/23 09:06 Room Air 11/15/23 08:33 Room Air 11/15/23 08:00 Room Air 11/15/23 07:30 Room Air 11/15/23 06:09 Room Air 11/15/23 05:27 Room Air 11/15/23 05:09 Room Air 11/15/23 04:53 Room Air 11/15/23 04:30 Room Air 11/15/23 04:00 Room Air 11/15/23 03:03 11/15/23 02:30 Room Air 11/15/23 01:30 Room Air 11/15/23 01:00 Room Air 11/15/23 00:30 Room Air 11/15/23 00:13 11/14/23 23:54 Room Air 11/14/23 23:45 Room Air 11/14/23 22:33 Room Air Diagnostic Findings Head CT 11/14/23 16:57 CT SCAN OF THE BRAIN WITHOUT IV CONTRAST CLINICAL HISTORY: Left upper and lower extremity numbness. Neurological deficit. Strokelike symptoms. COMPARISON STUDY: CT of the brain dated 01/19/2021. TECHNIQUE: Unenhanced axial CT scan of the brain is performed from the vertex to the skull base. A dose lowering technique was utilized adhering to the principles of ALARA. CT DOSE: 625.8 mGy.cm FINDINGS: Brain parenchyma: The brain parenchyma is normal in appearance. There is no hemorrhage, mass effect, or evidence of acute territorial ischemia by CT criteria. Luque-white matter differentiation is preserved. No extra-axial fluid collection is seen. Ventricles, sulci, cisterns: Normal in configuration. Intracranial vasculature: The visualized intracranial vasculature at the skull base is normal in appearance. Calvarium: Unremarkable. Sinuses and mastoids: The visualized paranasal sinuses are clear. The mastoid air cells are well pneumatized. Orbits: The bony orbits are grossly intact. IMPRESSION: No acute intracranial abnormality. ACT 112: Negative or not required by law. Electronically signed by: Agustin Paz M.D. 11/14/2023 5:44 PM Abdomen/Pelvis CT 11/14/23 19:10 Exam(s): CT ABDOMEN + PELVIS With Contrast IV Amt: 119 ml optiray 320 EXAM: CT Abdomen and Pelvis With Intravenous Contrast CLINICAL HISTORY: Reason for exam: abdominal pain, fever, left flank pain. TECHNIQUE: Axial computed tomography images of the abdomen and pelvis with intravenous contrast. CTDI is 14.43 mGy and DLP is 732.91 mGy-cm. Automated exposure control was utilized for the study. A dose lowering technique was utilized adhering to the principles of ALARA. CONTRAST: Patient received 119 ml optiray 320 of IV contrast COMPARISON: No relevant prior studies available. FINDINGS: ABDOMEN: Liver: Unremarkable. Gallbladder and bile ducts: Unremarkable. Pancreas: Unremarkable. Spleen: Unremarkable. Adrenals: Unremarkable. Kidneys and ureters: Normal enhancement of the kidneys. No hydronephrosis. No stones. Stomach and bowel: Unremarkable. PELVIS: Appendix: Normal appendix. Bladder: Unremarkable. Reproductive: Hyperemia around the prostate and seminal vesicles. ABDOMEN and PELVIS: Intraperitoneal space: Unremarkable. No free air. No significant fluid collection. Bones/joints: Bilateral pars defects at L5. No acute osseous abnormality. Soft tissues: Unremarkable. Vasculature: Unremarkable. Lymph nodes: Unremarkable. IMPRESSION: Hyperemia around the prostate and seminal vesicles. Correlate for infection. This may simply represent robust venous plexus. Electronically signed by: Jem Ibrahim MD 11/14/23 22:[address] 11/14/23 19:10 Exam(s): CT C SPINE EXAM: CT Cervical Spine Without Intravenous Contrast CLINICAL HISTORY: Reason for exam: Neck pain, fever. TECHNIQUE: Axial computed tomography images of the cervical spine without intravenous contrast. CTDI is 11.87 mGy and DLP is 5.94 mGy-cm. Automated exposure control was utilized for the study. A dose lowering technique was utilized adhering to the principles of ALARA. COMPARISON: No relevant prior studies available. FINDINGS: Vertebrae: No acute fracture. No malalignment. Disc spaces are preserved. No evidence of discitis or osteomyelitis. No spinal canal or foraminal stenosis. Soft tissues: Unremarkable. IMPRESSION: No acute abnormality within the cervical spine. Electronically signed by: Jem Ibrahim MD 11/15/23 00:05 AM Chest CTA 11/14/23 19:10 Exam(s): CTA CHEST IV Amt: 119 ml optiray 320 EXAM: CT Angiography Chest With Intravenous Contrast CLINICAL HISTORY: Reason for exam: PE. TECHNIQUE: Axial computed tomographic angiography images of the chest with intravenous contrast. CTDI is 17.28 mGy and DLP is 614.03 mGy-cm. Automated exposure control was utilized for the study. A dose lowering technique was utilized adhering to the principles of ALARA. MIP reconstructed images were created and reviewed. COMPARISON: No relevant prior studies available. FINDINGS: Pulmonary arteries: Unremarkable. No pulmonary embolism. Aorta: No acute findings. Normal caliber. No dissection. Lungs: No consolidation or interstitial edema. Paraseptal blebs at the apices. Airways are clear. Pleural space: Unremarkable. Heart: Unremarkable. Bones/joints: No acute fracture. Soft tissues: Unremarkable. Lymph nodes: Unremarkable. IMPRESSION: No acute findings in the visualized arteries of the chest. Electronically signed by: Jem Ibrahim MD 11/14/23 22:[address] 11/14/23 19:10 Exam(s): CT L SPINE With Contrast IV Amt: 119 ml optiray 320 EXAM: CT Lumbar Spine With Intravenous Contrast CLINICAL HISTORY: Reason for exam: Low back pain, fever, paresthesias. TECHNIQUE: Axial computed tomography images of the lumbar spine with intravenous contrast. CTDI is 14.43 mGy and DLP is 732.91 mGy-cm. Automated exposure control was utilized for the study. A dose lowering technique was utilized adhering to the principles of ALARA. CONTRAST: Patient received 119 ml optiray 320 of IV contrast COMPARISON: No relevant prior studies available. FINDINGS: No acute fracture or malalignment. Bilateral pars defects at L5. Trace anterolisthesis at L5-S1. Vertebral body heights are preserved. No canal stenosis. Mild foraminal stenosis at L4-5 and L5-S1. No evidence of discitis osteomyelitis. Soft tissues are unremarkable. IMPRESSION: No acute abnormality in the lumbar spine. Electronically signed by: Jem Ibrahim MD 11/14/23 22:[address] 11/14/23 19:10 Exam(s): CT T SPINE IV Amt: 119 ml optiray 320 EXAM: CT Thoracic Spine With Intravenous Contrast CLINICAL HISTORY: Reason for exam: Back pain, fever. TECHNIQUE: Axial computed tomography images of the thoracic spine with intravenous contrast. CTDI is 17.28 mGy and DLP is 614.03 mGy-cm. Automated exposure control was utilized for the study. A dose lowering technique was utilized adhering to the principles of ALARA. CONTRAST: Patient received 119 ml optiray 320 of IV contrast COMPARISON: No relevant prior studies available. FINDINGS: Vertebrae: Unremarkable. No acute fracture. Other bones/joints: No acute fracture or malalignment. No discitis osteomyelitis. No significant disc disease or stenosis. Soft tissues: Unremarkable. IMPRESSION: No acute abnormality within the thoracic spine. Electronically signed by: Jem Ibrahim MD 11/14/23 23:55 PM
[2023-11-15] MEDS: GADOBUTROL 65ML VIAL IV ONE (15:54)
--- NOTE | 2023-11-15 16:49 | Magnetic Resonance Report ---
MRI OF THE BRAIN COMBO CLINICAL HISTORY: Left-sided weakness. 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 COMPARISON STUDY: CT of the brain dated 11/14/2023. TECHNIQUE: MRI of the brain was performed utilizing various T1 and T2-weighted sequences in the axial , sagittal, and coronal planes. Contrast-enhanced sequences were acquired following the administratio n of 6. cc of Gadavist. FINDINGS: Brain parenchyma: There is an indeterminant 6 mm focus of signal abnormality in the white matter abov e the occipital horn of the right ventricle. This is best seen on coronal FLAIR image #16. The brain parenchyma is otherwise normal in appearance. There is no hemorrhage or mass effect. There is no rest ricted diffusion to suggest acute ischemia. No enhancing mass lesion is identified on the postcontras t images. Luque-white matter differentiation is preserved. No extra-axial fluid collection is seen. Th e cerebellar tonsils are normal in configuration. Ventricles, sulci, and cisterns: Normal in configuration. Pituitary and sella: Unremarkable. Intracranial vasculature: Normal flow voids are maintained at the skull base. Orbits: The bony orbits are grossly intact. Orbital contents are normal in appearance. Sinuses and mastoids: There is trace mucosal thickening within the ethmoid, left sphenoid, and maxill serene sinuses. The mastoid air cells are clear. Calvarium: Unremarkable. Cervical cord: Partially visualized cervical spinal cord is normal in morphology and signal intensity . IMPRESSION: 1. No acute intracranial abnormality. 2. There is an indeterminant 6 mm focus of signal abnormality seen within the white matter adjacent t o the occipital horn of the right lateral ventricle. This is of indeterminate significance as an isol ated finding. ACT 112: Negative or not required by law. Electronically signed by: Agustin Paz M.D. 11/15/2023 4:47 PM
[2023-11-15] MEDS: predniSONE 20 MG TAB PO SCH (17:06)
--- NOTE | 2023-11-15 17:52 | Magnetic Resonance Report ---
MRI OF THE ORBITS COMBO CLINICAL HISTORY: Blurry vision. 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 COMPARISON STUDY: MRI of the brain performed the same day on 11/15/2023. TECHNIQUE: High-resolution MRI of the orbits is performed utilizing various T1 and T2-weighted sequen kalyani in the axial, sagittal, and coronal planes. Contrast enhanced sequences are acquired following th e IV administration of 6.8 cc of Gadavist. FINDINGS: The bony orbits are grossly intact and the orbital contents are within normal limits. There is no evidence of intra or extraconal mass lesion. The extraocular muscles are normal and symmetric. The optic nerves are normal in appearance. There is no abnormal postcontrast enhancement involving t he optic nerves. The visualized brain parenchyma is within normal limits. Normal flow voids are maint ained at the skull base. Mild mucosal thickening is noted within the maxillary and ethmoid sinuses. IMPRESSION: Normal MRI examination of the orbits. Dictated: 11/15/2023 5:09 PM Transcribed: 11/15/2023 5:31 PM [place] [id number] AKHIL_Marino [id number] Electronically signed by: Agustin Paz M.D. 11/15/2023 5:51 PM
--- NOTE | 2023-11-15 18:05 | Magnetic Resonance Report ---
MRI OF THE CERVICAL SPINE COMBO CLINICAL HISTORY: Left-sided weakness. 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 COMPARISON STUDY: Cervical spine CT dated 11/14/2023. TECHNIQUE: MRI of the cervical spine was performed utilizing various T1 and T2-weighted sequences in the axial and sagittal planes. Contrast enhanced sequences are acquired following the IV administrati on of 6.8 cc of Gadavist. FINDINGS: Cervical spine: Vertebral body height and alignment are maintained throughout the cervical spine. The atlantodental articulation is maintained. The spinous processes appear intact. No destructive bony p rocess is seen. Intervertebral discs: There is minimal disc desiccation. The disc spaces are maintained. Spinal cord: The cervical cord is normal in morphology and signal intensity. No abnormal postcontrast enhancement is identified. C2-C3: Unremarkable. C3-C4: Unremarkable. C4-C5: Unremarkable. C5-C6: A posterior disc osteophyte complex minimally effaces the ventral subarachnoid space. The neur al foramina are patent. C6-C7: Unremarkable. C7-T1: Unremarkable. T1-T2: Unremarkable. Soft tissues: The prevertebral and paraspinous soft tissues are normal as visualized. Brain parenchyma: The imaged brain parenchyma at the skull base is within normal limits. IMPRESSION: 1. The cervical cord is normal in morphology and signal intensity with no abnormal postcontrast enhan cement identified. 2. No central canal stenosis or neural foraminal narrowing is seen throughout the cervical spine. 3. No destructive bony process is seen. Dictated: 11/15/2023 5:13 PM Transcribed: 11/15/2023 5:34 PM [place] [id number] AKHIL_Marino [id number] Electronically signed by: Agustin Paz M.D. 11/15/2023 6:03 PM
[2023-11-16 07:12] LABS: Basophils # (auto) 0.01 K/uL (0.00-0.20); Basophils % (auto) 0.2 %; Hematocrit (blood only) 43.9 % (42.0-52.0); Immature Granulocytes # (auto) 0.01 K/uL (0.01-0.20); Immature Granulocytes % (auto) 0.2 %; Lymphocytes % (auto) 16.4 %; Mean Corpuscular Hemoglobin 30.9 pg (25.0-34.0); Mean Corpuscular Hgb Conc 34.2 g/dL (32.0-36.0); Mean Corpuscular Volume 90.3 fL (80.0-100.0); Mean Platelet Volume 10.5 fL (9.4-12.4); Monocytes # (auto) 0.77 K/uL (0.11-0.59); Monocytes % (auto) 12.7 %; Neutrophils # (auto) 4.29 K/uL (1.40-6.50); Neutrophils % (auto) 70.5 %; Platelet Count 205 K/uL (130-400); RDW Standard Deviation 39.8 fL (36.4-46.3); Red Blood Count 4.86 M/uL (4.70-6.10); White Blood Count 6.08 K/ul (4.8-10.8)
[2023-11-16] MEDS: THIAMINE HCL 100 MG TAB PO SCH (07:33)
[2023-11-16] MEDS: PNEUMOCOCCAL VACCINE (PCV20) 20-VAL CONJ-DIP CRM/PF 0.5 ML SYR IM ONE (07:35)
[2023-11-16 07:46] LABS: Calcium 8.6 mg/dl (8.6-10.3); Creatinine Clr Calc Pharmacy 144.6 ml/min; Est GFR (African American) 147.2 ml/min; Magnesium 1.6 mg/dl (1.7-2.4); Phosphorus 4.3 mg/dl (2.5-4.9)
[2023-11-16 07:53] LABS: Estimated Average Glucose 103 mg/dl; Hemoglobin A1C 5.2 % (4.5-5.6)
[2023-11-16] MEDS: MAGNESIUM SULFATE / D5W 1 GM/100 ML BAG IV SCH (10:30)
--- NOTE | 2023-11-16 14:15 | Discharge Summary ---
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 NMOSD (Neuromyelitis optica spectrum disorder) flareup secondary to COVID-19 illness Neurochecks MRI brain, orbit, spine ordered- grossly unremarkable Neurology consult Re: Neurologic symptoms, history NMOSD -follow MRI imaging -Check vitamin D level. -Continue to supplement thiamine and. folic acid -Can start prednisone 60 mg with a tapering dose to help with symptoms, will change recommendations if MRIs show any enhancement. -Supportive care for his COVID infection Case discussed with neurology on day of discharge, agreeable to discharge with prednisone taper with close Neurology followup. Pt discharged with prednisone 60mg taper, Vit D supplements, thiamine and folic acid supplements. Stated that his symptoms were improved on the day of discharge. Please ensure close Neurology followup after discharge Vitamin D Deficiency Vit D level low at 20ng/ml Started on Cholecalciferol 25mcg daily PCP followup Covid Infection Noted on serology Pt asymptomatic supportive care as needed Hyperglycemia hgba1c normal Bradycardia EKG with NSR Has been having HR in 40s-50s Likely in setting of morphine use Monitored on telemetry PCP followup Prostate/Seminal Vesicles Hyperemia Noted on imaging Radiology also noes can be robust plexus Outpt followup ADHD mood disorder stable off maintenance medications ongoing tobacco/alcohol abuse Encourage cessation PAULY S at risk protocol, DT precautions Nicotine patch as needed Discharged with thiamine and folic acid supplements Notes For Next Care Provider please ensure followup with Neurology Medication Changes From Visit Cholecalciferol 25mcg qAM thiamine hcl 100mg qAM folic acid 1mg po qAM prednisone 60mg taper Admission HPI Per Admitting Provider History obtained from patient and records. 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 Last confinement [facility] for pneumomediastinum noted on [facility] ER imaging. No esophageal perforation on esophagogram. Pneumomediastinum possibly from bleb rupture with air leak into mediastinal place as per thoracic surgery. No procedures done. Patient requested to be discharged. Patient not feeling well the last couple of days. Chills and shaking. Dry cough symptoms. No chest pain, no SOB, no abdominal pain. Yesterday morning, patient noted low back pain with associated left leg and some left arm weakness. No headache, no nausea, no vomiting. Increased blurred vision on bad left eye as per patient. Patient initially went to [facility] ER for evaluation. Patient proceeded to [facility] ER because [facility] ER was very busy. 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; originally from [place], patient contemplating move to [place], [place] following discharge from hospital Admission Exam Per Admitting Provider GENERAL: Slightly uncomfortable, wane, no respiratory distress SKIN: Normal color, warm HEENT: [place] palpebral conjunctivae, no ptosis, dry buccal mucosa NECK : Supple, no tenderness CHEST : CTA, no tenderness HEART : Bradycardic, no obvious murmurs ABDOMEN: no distention, nontender BACK : Low back tenderness, negative SLR EXTREMITIES : No LE swelling/tenderness, no other conspicuous deformities noted NEUROLOGIC : Coherent, no facial asymmetry, MMTS BUE/BLE 4/5, gait and stance not assessed Discharge Exam General: Alert, oriented. No acute distress Skin: No noted rashes or bruises neuro: strength weaker on the left in both lower and upper extremities Psych: Appropriate mood and affect HEENT: NC/AT CV: RRR Resp: breath sounds clear no increased effort of breathing Extremities: strength weaker on the left in both lower and upper extremities Updated Medication List Medication Instructions Recorded Confirmed Type cholecalciferol (vitamin D3) 25 25 mcg PO QAM #30 caps 11/16/23 Rx mcg (1,000 unit) capsule folic acid 1 mg tablet 1 mg PO QAM #30 tabs 11/16/23 Rx prednisone 10 mg tablet 10 mg PO DIRECTED #74 tabs 11/16/23 Rx thiamine HCl (vitamin B1) 100 mg 100 mg PO QAM #30 tabs 11/16/23 Rx tablet Hospital Stay Data Consultations 11/15/23 00:20 ED Decision to Admit Stat 11/15/23 07:57 Consult Neurology Routine Diagnostic Imagining Performed 11/14/23 16:57 CT head/brain wo con Stat 11/14/23 19:10 CT abd pelvis IV con only Stat CT angio chest PE protocol Stat CT cervical spine wo con Stat CT lumbar spine w con Stat CT thoracic spine w con Stat 11/15/23 05:59 MR orbit wo/w con Urgent MR thoracic spine wo/w con Urgent MRI Brain [MR brain wo/w con] Urgent MRI Neck [MR cervical spine wo/w con] Urgent 11/16/23 05:59 MR lumbar spine wo/w con Urgent Discharge Instructions Given to Patient (Per Discharging Provider) Jeff, You were seen by the neurologist for your left sided weakness and they are recommending discharge home with a prednisone taper. Please take it as prescribed. They also recommend use of thiamine and folic acid supplements. We noted that your Vitamin D levels were low so we started you on daily supplementation for that. You also tested positive for covid but you are not having any typical symptoms. Please continue with supportive care for that if needed (mucinex, cough syrup, etc). The orthopedic spine surgeon took a look at your MRI of your spine and advised that you should follow up as an outpatient with their office. Please call their office to make an appointment. Please keep close follow up with your primary care provider after discharge. Please also keep close follow up with your neurologist Dr Powell after discharge. Please do not hesitate to come back to the emergency room if your symptoms worsen or return. It was a pleasure taking care of you while you were here. Total Time Total Time Spent Total Time Spent (In Minutes): 75
[2023-11-16] MEDS: GADOBUTROL 65ML VIAL IV ONE (15:30)
--- NOTE | 2023-11-16 15:53 | Magnetic Resonance Report ---
THORACIC SPINE MRI WITH AND WITHOUT CONTRAST HISTORY: L sided weakness, hx neuromyelitis optica TECHNIQUE: Multiplanar multisequence MRI of the thoracic spine was performed both before and after th e intravenous administration of contrast. COMPARISON: Thoracic spine CT 11/14/2023. FINDINGS: No fracture or subluxation. Mild disc space narrowing within the mid thoracic spine. There is a 2 mm right paracentral focal disc protrusion at T6-T7 without significant central canal or neural foramina l narrowing. No significant central canal or neural foraminal narrowing throughout the thoracic spine . The thoracic spinal cord is normal in course, caliber, and signal intensity. Paravertebral soft tis sues are unremarkable. Postcontrast sequences show no areas of abnormal enhancement. IMPRESSION: 1. Normal thoracic spinal cord. 2. Mild degenerative disc disease within the mid thoracic spine. However, no significant central naeem l or neural foraminal narrowing. ACT 112: Negative or not required by law. Electronically signed by: Dino Gutierrez M.D. 11/16/2023 3:51 PM
[2023-11-16] MEDS: CHOLECALCIFEROL 25 MCG (1000 UNITS) TAB PO SCH (16:08)
[2023-11-16] MEDS ORDERED: STROKE PATIENT DISCHARGE STA (16:15)
--- NOTE | 2023-11-16 16:18 | Magnetic Resonance Report ---
LUMBAR SPINE MRI WITH AND WITHOUT CONTRAST HISTORY: L sided weakness, hx neuromyelitis optica TECHNIQUE: Multiplanar multisequence MRI of the lumbar spine was performed both before and after the intravenous administration of contrast. COMPARISON: Lumbar spine CT 11/14/2023. FINDINGS: For the purpose of the report the L5-S1 disc space will be located on axial image 27 of 30. No acute fractures within the lumbar spine. The visualized sacrum is intact. Paravertebral soft tissu es are unremarkable. Bilateral L5 spondylolysis with 3 mm of anterolisthesis. This remains unchanged. Mild disc space narrowing and disc desiccation at L4-L5. Remaining disc spaces are preserved. The co nus terminates at the T12-L1 disc space level. Postcontrast sequences show no areas of abnormal enhan cement. L1-L2: No significant central canal or neural foraminal narrowing. L2-L3: No significant central canal or neural foraminal narrowing. L3-L4: No significant central canal or neural foraminal narrowing. L4-L5: Small broad-based posterior disc protrusion measuring approximately 3 mm. However, no signific ant central canal or neural foraminal narrowing. L5-S1: No significant central canal or neural foraminal narrowing. IMPRESSION: 1. No fractures within the lumbar spine. 2. 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 3. A small broad-based posterior disc protrusion at L4-L5 without significant central canal or neural foraminal narrowing. ACT 112: Negative or not required by law. Electronically signed by: Dino Gutierrez M.D. 11/16/2023 4:16 PM
--- NOTE | 2023-11-16 16:39 | Hospitalist Progress Note ---
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 NMOSD (Neuromyelitis optica spectrum disorder) flareup secondary to COVID-19 illness Neurochecks MRI brain, orbit, spine ordered- grossly unremarkable Neurology consult Re: Neurologic symptoms, history NMOSD -follow MRI imaging -Check vitamin D level. -Continue to supplement thiamine and. folic acid -Can start prednisone 60 mg with a tapering dose to help with symptoms, will change recommendations if MRIs show any enhancement. -Supportive care for his COVID infection Case discussed with neurology on day of discharge, agreeable to discharge with prednisone taper with close Neurology followup. Pt discharged with prednisone 60mg taper, Vit D supplements, thiamine and folic acid supplements. Stated that his symptoms were improved on the day of discharge. 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 posterior disc protrusion at L4-L5 Noted on MRI lumbar spine Orthospine consulted, appreciate recs Continue steroids and other prn pain control Vitamin D Deficiency Vit D level low at 20ng/ml Started on Cholecalciferol 25mcg daily PCP followup Covid Infection Noted on serology Pt asymptomatic supportive care as needed Hyperglycemia hgba1c normal Bradycardia EKG with NSR Has been having HR in 40s-50s Likely in setting of morphine use Monitored on telemetry PCP followup Prostate/Seminal Vesicles Hyperemia Noted on imaging Radiology also noes can be robust plexus Outpt followup ADHD mood disorder stable off maintenance medications ongoing tobacco/alcohol abuse Encourage cessation PAULY S at risk protocol, DT precautions Nicotine patch as needed Discharged with thiamine and folic acid supplements Admission and Anticipated Discharge Date Admission Date: November 15, 2023 Subjective Pt was seen in [facility] States weakness improved with steroids and pain Feeling better Review of Systems Review of Systems: All systems reviewed & are unremarkable except as noted in Subjective Physical Exam Physical Exam: General: Alert, oriented. No acute distress Skin: No noted rashes or bruises neuro: strength weaker on the left in both lower and upper extremities Psych: Appropriate mood and affect HEENT: NC/AT CV: RRR Resp: breath sounds clear no increased effort of breathing Extremities: strength weaker on the left in both lower and upper extremities Results & Data Results & Data Vital Signs (Past 12 Hours) Vital Signs Temp Pulse Pulse Resp BP Pulse Ox O2 Del Method 11/16/23 16:15 36.4 C L 55 L 18 112/71 97 11/16/23 13:00 58 L 11/16/23 11:34 36.4 C L 55 L 18 112/71 97 Room Air 11/16/23 07:35 36.5 C 53 L 18 115/65 98 Room Air 11/16/23 07:00 54 L Diagnostic Findings Head CT 11/14/23 16:57 CT SCAN OF THE BRAIN WITHOUT IV CONTRAST CLINICAL HISTORY: Left upper and lower extremity numbness. Neurological deficit. Strokelike symptoms. COMPARISON STUDY: CT of the brain dated 01/19/2021. TECHNIQUE: Unenhanced axial CT scan of the brain is performed from the vertex to the skull base. A dose lowering technique was utilized adhering to the principles of ALARA. CT DOSE: 625.8 mGy.cm FINDINGS: Brain parenchyma: The brain parenchyma is normal in appearance. There is no hemorrhage, mass effect, or evidence of acute territorial ischemia by CT criteria. Luque-white matter differentiation is preserved. No extra-axial fluid collection is seen. Ventricles, sulci, cisterns: Normal in configuration. Intracranial vasculature: The visualized intracranial vasculature at the skull base is normal in appearance. Calvarium: Unremarkable. Sinuses and mastoids: The visualized paranasal sinuses are clear. The mastoid air cells are well pneumatized. Orbits: The bony orbits are grossly intact. IMPRESSION: No acute intracranial abnormality. ACT 112: Negative or not required by law. Electronically signed by: Agustin Paz M.D. 11/14/2023 5:44 PM Abdomen/Pelvis CT 11/14/23 19:10 Exam(s): CT ABDOMEN + PELVIS With Contrast IV Amt: 119 ml optiray 320 EXAM: CT Abdomen and Pelvis With Intravenous Contrast CLINICAL HISTORY: Reason for exam: abdominal pain, fever, left flank pain. TECHNIQUE: Axial computed tomography images of the abdomen and pelvis with intravenous contrast. CTDI is 14.43 mGy and DLP is 732.91 mGy-cm. Automated exposure control was utilized for the study. A dose lowering technique was utilized adhering to the principles of ALARA. CONTRAST: Patient received 119 ml optiray 320 of IV contrast COMPARISON: No relevant prior studies available. FINDINGS: ABDOMEN: Liver: Unremarkable. Gallbladder and bile ducts: Unremarkable. Pancreas: Unremarkable. Spleen: Unremarkable. Adrenals: Unremarkable. Kidneys and ureters: Normal enhancement of the kidneys. No hydronephrosis. No stones. Stomach and bowel: Unremarkable. PELVIS: Appendix: Normal appendix. Bladder: Unremarkable. Reproductive: Hyperemia around the prostate and seminal vesicles. ABDOMEN and PELVIS: Intraperitoneal space: Unremarkable. No free air. No significant fluid collection. Bones/joints: Bilateral pars defects at L5. No acute osseous abnormality. Soft tissues: Unremarkable. Vasculature: Unremarkable. Lymph nodes: Unremarkable. IMPRESSION: Hyperemia around the prostate and seminal vesicles. Correlate for infection. This may simply represent robust venous plexus. Electronically signed by: Jem Ibrahim MD 11/14/23 22:[address] 11/14/23 19:10 Exam(s): CT C SPINE EXAM: CT Cervical Spine Without Intravenous Contrast CLINICAL HISTORY: Reason for exam: Neck pain, fever. TECHNIQUE: Axial computed tomography images of the cervical spine without intravenous contrast. CTDI is 11.87 mGy and DLP is 5.94 mGy-cm. Automated exposure control was utilized for the study. A dose lowering technique was utilized adhering to the principles of ALARA. COMPARISON: No relevant prior studies available. FINDINGS: Vertebrae: No acute fracture. No malalignment. Disc spaces are preserved. No evidence of discitis or osteomyelitis. No spinal canal or foraminal stenosis. Soft tissues: Unremarkable. IMPRESSION: No acute abnormality within the cervical spine. Electronically signed by: Jem Ibrahim MD 11/15/23 00:05 AM Chest CTA 11/14/23 19:10 Exam(s): CTA CHEST IV Amt: 119 ml optiray 320 EXAM: CT Angiography Chest With Intravenous Contrast CLINICAL HISTORY: Reason for exam: PE. TECHNIQUE: Axial computed tomographic angiography images of the chest with intravenous contrast. CTDI is 17.28 mGy and DLP is 614.03 mGy-cm. Automated exposure control was utilized for the study. A dose lowering technique was utilized adhering to the principles of ALARA. MIP reconstructed images were created and reviewed. COMPARISON: No relevant prior studies available. FINDINGS: Pulmonary arteries: Unremarkable. No pulmonary embolism. Aorta: No acute findings. Normal caliber. No dissection. Lungs: No consolidation or interstitial edema. Paraseptal blebs at the apices. Airways are clear. Pleural space: Unremarkable. Heart: Unremarkable. Bones/joints: No acute fracture. Soft tissues: Unremarkable. Lymph nodes: Unremarkable. IMPRESSION: No acute findings in the visualized arteries of the chest. Electronically signed by: Jem Ibrahim MD 11/14/23 22:[address] 11/14/23 19:10 Exam(s): CT L SPINE With Contrast IV Amt: 119 ml optiray 320 EXAM: CT Lumbar Spine With Intravenous Contrast CLINICAL HISTORY: Reason for exam: Low back pain, fever, paresthesias. TECHNIQUE: Axial computed tomography images of the lumbar spine with intravenous contrast. CTDI is 14.43 mGy and DLP is 732.91 mGy-cm. Automated exposure control was utilized for the study. A dose lowering technique was utilized adhering to the principles of ALARA. CONTRAST: Patient received 119 ml optiray 320 of IV contrast COMPARISON: No relevant prior studies available. FINDINGS: No acute fracture or malalignment. Bilateral pars defects at L5. Trace anterolisthesis at L5-S1. Vertebral body heights are preserved. No canal stenosis. Mild foraminal stenosis at L4-5 and L5-S1. No evidence of discitis osteomyelitis. Soft tissues are unremarkable. IMPRESSION: No acute abnormality in the lumbar spine. Electronically signed by: Jem Ibrahim MD 11/14/23 22:[address] 11/14/23 19:10 Exam(s): CT T SPINE IV Amt: 119 ml optiray 320 EXAM: CT Thoracic Spine With Intravenous Contrast CLINICAL HISTORY: Reason for exam: Back pain, fever. TECHNIQUE: Axial computed tomography images of the thoracic spine with intravenous contrast. CTDI is 17.28 mGy and DLP is 614.03 mGy-cm. Automated exposure control was utilized for the study. A dose lowering technique was utilized adhering to the principles of ALARA. CONTRAST: Patient received 119 ml optiray 320 of IV contrast COMPARISON: No relevant prior studies available. FINDINGS: Vertebrae: Unremarkable. No acute fracture. Other bones/joints: No acute fracture or malalignment. No discitis osteomyelitis. No significant disc disease or stenosis. Soft tissues: Unremarkable. IMPRESSION: No acute abnormality within the thoracic spine. Electronically signed by: Jem Ibrahim MD 11/14/23 23:55 PM Brain MRI 11/15/23 05:59 MRI OF THE BRAIN COMBO CLINICAL HISTORY: Left-sided weakness. 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 COMPARISON STUDY: CT of the brain dated 11/14/2023. TECHNIQUE: MRI of the brain was performed utilizing various T1 and T2-weighted sequences in the axial, sagittal, and coronal planes. Contrast-enhanced sequences were acquired following the administration of 6. cc of Gadavist. FINDINGS: Brain parenchyma: There is an indeterminant 6 mm focus of signal abnormality in the white matter above the occipital horn of the right ventricle. This is best seen on coronal FLAIR image #16. The brain parenchyma is otherwise normal in appearance. There is no hemorrhage or mass effect. There is no restricted diffusion to suggest acute ischemia. No enhancing mass lesion is identified on the postcontrast images. Luque-white matter differentiation is preserved. No extra-axial fluid collection is seen. The cerebellar tonsils are normal in configuration. Ventricles, sulci, and cisterns: Normal in configuration. Pituitary and sella: Unremarkable. Intracranial vasculature: Normal flow voids are maintained at the skull base. Orbits: The bony orbits are grossly intact. Orbital contents are normal in appearance. Sinuses and mastoids: There is trace mucosal thickening within the ethmoid, left sphenoid, and maxillary sinuses. The mastoid air cells are clear. Calvarium: Unremarkable. Cervical cord: Partially visualized cervical spinal cord is normal in morphology and signal intensity. IMPRESSION: 1. No acute intracranial abnormality. 2. There is an indeterminant 6 mm focus of signal abnormality seen within the white matter adjacent to the occipital horn of the right lateral ventricle. This is of indeterminate significance as an isolated finding. ACT 112: Negative or not required by law. Electronically signed by: Agustin Paz M.D. 11/15/2023 4:47 PM Cervical Spine MRI 11/15/23 05:59 MRI OF THE CERVICAL SPINE COMBO CLINICAL HISTORY: Left-sided weakness. 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 COMPARISON STUDY: Cervical spine CT dated 11/14/2023. TECHNIQUE: MRI of the cervical spine was performed utilizing various T1 and T2- weighted sequences in the axial and sagittal planes. Contrast enhanced sequences are acquired following the IV administration of 6.8 cc of Gadavist. FINDINGS: Cervical spine: Vertebral body height and alignment are maintained throughout the cervical spine. The atlantodental articulation is maintained. The spinous processes appear intact. No destructive bony process is seen. Intervertebral discs: There is minimal disc desiccation. The disc spaces are maintained. Spinal cord: The cervical cord is normal in morphology and signal intensity. No abnormal postcontrast enhancement is identified. C2-C3: Unremarkable. C3-C4: Unremarkable. C4-C5: Unremarkable. C5-C6: A posterior disc osteophyte complex minimally effaces the ventral subarachnoid space. The neural foramina are patent. C6-C7: Unremarkable. C7-T1: Unremarkable. T1-T2: Unremarkable. Soft tissues: The prevertebral and paraspinous soft tissues are normal as visualized. Brain parenchyma: The imaged brain parenchyma at the skull base is within normal limits. IMPRESSION: 1. The cervical cord is normal in morphology and signal intensity with no abnormal postcontrast enhancement identified. 2. No central canal stenosis or neural foraminal narrowing is seen throughout the cervical spine. 3. No destructive bony process is seen. Dictated: 11/15/2023 5:13 PM Transcribed: 11/15/2023 5:34 PM [place] [id number] [facility] [id number] Electronically signed by: Agustin Paz M.D. 11/15/2023 6:03 PM Orbit MRI 11/15/23 05:59 MRI OF THE ORBITS COMBO CLINICAL HISTORY: Blurry vision. 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 COMPARISON STUDY: MRI of the brain performed the same day on 11/15/2023. TECHNIQUE: High-resolution MRI of the orbits is performed utilizing various T1 and T2-weighted sequences in the axial, sagittal, and coronal planes. Contrast enhanced sequences are acquired following the IV administration of 6.8 cc of Gadavist. FINDINGS: The bony orbits are grossly intact and the orbital contents are within normal limits. There is no evidence of intra or extraconal mass lesion. The extraocular muscles are normal and symmetric. The optic nerves are normal in appearance. There is no abnormal postcontrast enhancement involving the optic nerves. The visualized brain parenchyma is within normal limits. Normal flow voids are maintained at the skull base. Mild mucosal thickening is noted within the maxillary and ethmoid sinuses. IMPRESSION: Normal MRI examination of the orbits. Dictated: 11/15/2023 5:09 PM Transcribed: 11/15/2023 5:31 PM [place] [id number] [facility] [id number] Electronically signed by: Agustin Paz M.D. 11/15/2023 5:51 PM Thoracic Spine MRI 11/15/23 05:59 THORACIC SPINE MRI WITH AND WITHOUT CONTRAST HISTORY: L sided weakness, hx neuromyelitis optica TECHNIQUE: Multiplanar multisequence MRI of the thoracic spine was performed both before and after the intravenous administration of contrast. COMPARISON: Thoracic spine CT 11/14/2023. FINDINGS: No fracture or subluxation. Mild disc space narrowing within the mid thoracic spine. There is a 2 mm right paracentral focal disc protrusion at T6-T7 without significant central canal or neural foraminal narrowing. No significant central canal or neural foraminal narrowing throughout the thoracic spine. The thoracic spinal cord is normal in course, caliber, and signal intensity. Paravertebral soft tissues are unremarkable. Postcontrast sequences show no areas of abnormal enhancement. IMPRESSION: 1. Normal thoracic spinal cord. 2. Mild degenerative disc disease within the mid thoracic spine. However, no significant central canal or neural foraminal narrowing. ACT 112: Negative or not required by law. Electronically signed by: Dino Gutierrez M.D. 11/16/2023 3:51 PM Lumbar Spine MRI 11/16/23 05:59 LUMBAR SPINE MRI WITH AND WITHOUT CONTRAST HISTORY: L sided weakness, hx neuromyelitis optica TECHNIQUE: Multiplanar multisequence MRI of the lumbar spine was performed both before and after the intravenous administration of contrast. COMPARISON: Lumbar spine CT 11/14/2023. FINDINGS: For the purpose of the report the L5-S1 disc space will be located on axial image 27 of 30. No acute fractures within the lumbar spine. The visualized sacrum is intact. Paravertebral soft tissues are unremarkable. Bilateral L5 spondylolysis with 3 mm of anterolisthesis. This remains unchanged. Mild disc space narrowing and disc desiccation at L4-L5. Remaining disc spaces are preserved. The conus terminates at the T12-L1 disc space level. Postcontrast sequences show no areas of abnormal enhancement. L1-L2: No significant central canal or neural foraminal narrowing. L2-L3: No significant central canal or neural foraminal narrowing. L3-L4: No significant central canal or neural foraminal narrowing. L4-L5: Small broad-based posterior disc protrusion measuring approximately 3 mm. However, no significant central canal or neural foraminal narrowing. L5-S1: No significant central canal or neural foraminal narrowing. IMPRESSION: 1. No fractures within the lumbar spine. 2. 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 3. A small broad-based posterior disc protrusion at L4-L5 without significant central canal or neural foraminal narrowing. ACT 112: Negative or not required by law. Electronically signed by: Dino Gutierrez M.D. 11/16/2023 4:16 PM
[2023-11-16] MEDS: oxyCODONE HCL IR 5 MG TAB (IMMEDIATE RELEASE) PO PRN (20:05)
[2023-11-16] MEDS: ACETAMINOPHEN 325 MG TAB PO PRN (20:05)
[2023-11-16] MEDS: KETOROLAC TROMETHAMINE 15 MG/ML VIAL IV ONE (20:06)
[2023-11-16] MEDS: MAGNESIUM OXIDE 400 MG TAB PO SCH (20:48)
[2023-11-17 07:37] LABS: Basophils # (auto) 0.02 K/uL (0.00-0.20); Basophils % (auto) 0.3 %; Eosinophils # (auto) 0.08 K/uL (0.00-0.50); Eosinophils % (auto) 1.1 %; Hemoglobin 15.2 g/dl (14.0-18.0); Immature Granulocytes # (auto) 0.01 K/uL (0.01-0.20); Immature Granulocytes % (auto) 0.1 %; Lymphocytes # (auto) 2.34 K/uL (1.20-3.40); Lymphocytes % (auto) 30.7 %; Mean Corpuscular Hemoglobin 30.4 pg (25.0-34.0); Mean Corpuscular Hgb Conc 33.8 g/dL (32.0-36.0); Mean Platelet Volume 10.2 fL (9.4-12.4); Monocytes # (auto) 0.95 K/uL (0.11-0.59); Monocytes % (auto) 12.5 %; Neutrophils # (auto) 4.21 K/uL (1.40-6.50); Neutrophils % (auto) 55.3 %; Platelet Count 199 K/uL (130-400); RDW Coefficient of Variation 12.3 % (11.5-14.5); RDW Standard Deviation 40.5 fL (36.4-46.3); White Blood Count 7.61 K/ul (4.8-10.8)
[2023-11-17 07:46] LABS: BUN Creatinine Ratio 14.4 (10-20); Calcium 9.3 mg/dl (8.6-10.3); Creatinine Clr Calc Pharmacy 103.8 ml/min; Est GFR (African American) 115.9 ml/min; Phosphorus 4.5 mg/dl (2.5-4.9)
[2023-11-17] MEDS ORDERED: STROKE PATIENT DISCHARGE STA (10:35)
--- NOTE | 2023-11-17 10:37 | Discharge Summary ---
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 A small broad-based posterior disc protrusion at L4-L5 without significant central canal or neural foraminal narrowing" on MRI lumbar spine. Neurology consulted Re: Neurologic symptoms, history NMOSD -follow MRI imaging -Check vitamin D level. -Continue to supplement thiamine and. folic acid -Can start prednisone 60 mg with a tapering dose to help with symptoms, will change recommendations if MRIs show any enhancement. -Supportive care for his COVID infection Case discussed with neurology about discharge, agreeable to discharge with prednisone taper with close Neurology followup. Pt discharged with prednisone 60mg taper, Vit D supplements, thiamine and folic acid supplements. Stated that his symptoms were improved on the day of discharge. 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 Per orthospine on day of discharge: -Dr Hearn has reviewed all imaging...He can follow up as an outpatient as needed. Nothing urgently surgical. Continue steroids and other prn pain control: tylenol 1000mg q8h prn, ibuprofen 600mg q8h prn, lidocaine patch Also discharged with pantoprazole 40mg daily to protect the GI tract while on steroids and ibuprofen Please ensure close Ortho spine followup. Vitamin D Deficiency Vit D level low at 20ng/ml Started on Cholecalciferol 25mcg daily PCP followup Covid Infection Noted on serology Pt asymptomatic supportive care as needed Hyperglycemia hgba1c normal Bradycardia EKG with NSR Has been having HR in 40s-50s Likely in setting of morphine use Monitored on telemetry PCP followup Prostate/Seminal Vesicles Hyperemia Noted on imaging Radiology also noes can be robust plexus Outpt followup ADHD mood disorder stable off maintenance medications ongoing tobacco/alcohol abuse Encourage cessation PAULY S at risk protocol, DT precautions Nicotine patch as needed Discharged with thiamine and folic acid supplements Notes For Next Care Provider please ensure follow up with Neurology and Ortho Spine surgery. Medication Changes From Visit Cholecalciferol 25mcg qAM thiamine hcl 100mg qAM folic acid 1mg po qAM prednisone 60mg taper Admission HPI Per Admitting Provider History obtained from patient and records. 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 Last confinement [facility] for pneumomediastinum noted on [facility] imaging. No esophageal perforation on esophagogram. Pneumomediastinum possibly from bleb rupture with air leak into mediastinal place as per thoracic surgery. No procedures done. Patient requested to be discharged. Patient not feeling well the last couple of days. Chills and shaking. Dry cough symptoms. No chest pain, no SOB, no abdominal pain. Yesterday morning, patient noted low back pain with associated left leg and some left arm weakness. No headache, no nausea, no vomiting. Increased blurred vision on bad left eye as per patient. Patient initially went to [facility] ER for evaluation. Patient proceeded to [facility] ER because [facility] ER was very busy. 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; originally from [place], patient contemplating move to [place] following discharge from hospital Admission Exam Per Admitting Provider GENERAL: Slightly uncomfortable, wane, no respiratory distress SKIN: Normal color, warm HEENT: [place] palpebral conjunctivae, no ptosis, dry buccal mucosa NECK : Supple, no tenderness CHEST : CTA, no tenderness HEART : Bradycardic, no obvious murmurs ABDOMEN: no distention, nontender BACK : Low back tenderness, negative SLR EXTREMITIES : No LE swelling/tenderness, no other conspicuous deformities noted NEUROLOGIC : Coherent, no facial asymmetry, MMTS BUE/BLE 4/5, gait and stance not assessed Discharge Exam General: Alert, oriented. No acute distress Skin: No noted rashes or bruises neuro: strength weaker on the left in both lower and upper extremities Psych: Appropriate mood and affect HEENT: NC/AT CV: RRR Resp: breath sounds clear no increased effort of breathing Extremities: strength weaker on the left in both lower and upper extremities Updated Medication List Medication Instructions Recorded Confirmed Type cholecalciferol (vitamin D3) 25 25 mcg PO QAM #30 caps 11/16/23 Rx mcg (1,000 unit) capsule folic acid 1 mg tablet 1 mg PO QAM #30 tabs 11/16/23 Rx prednisone 10 mg tablet 10 mg PO DIRECTED #74 tabs 11/16/23 Rx thiamine HCl (vitamin B1) 100 mg 100 mg PO QAM #30 tabs 11/16/23 Rx tablet acetaminophen 500 mg tablet 1,000 mg (2 x 500 mg) PO Q8H PRN 11/17/23 Rx (Tylenol Extra Strength) pain #60 tabs ibuprofen 600 mg tablet 600 mg PO Q8H PRN pain #30 tabs 11/17/23 Rx lidocaine 4 % topical patch 1 patch topical DAILY #30 ea 11/17/23 Rx pantoprazole 40 mg tablet,delayed 40 mg PO DAILY #30 tabs 11/17/23 Rx release Hospital Stay Data Consultations 11/15/23 00:20 ED Decision to Admit Stat 11/15/23 07:57 Consult Neurology Routine 11/16/23 16:40 Consult Orthopedic Spine Surgery Routine Diagnostic Imagining Performed 11/14/23 16:57 CT head/brain wo con Stat 11/14/23 19:10 CT abd pelvis IV con only Stat CT angio chest PE protocol Stat CT cervical spine wo con Stat CT lumbar spine w con Stat CT thoracic spine w con Stat 11/15/23 05:59 MR orbit wo/w con Urgent MR thoracic spine wo/w con Urgent MRI Brain [MR brain wo/w con] Urgent MRI Neck [MR cervical spine wo/w con] Urgent 11/16/23 05:59 MR lumbar spine wo/w con Urgent Head CT 11/14/23 16:57 CT SCAN OF THE BRAIN WITHOUT IV CONTRAST CLINICAL HISTORY: Left upper and lower extremity numbness. Neurological deficit. Strokelike symptoms. COMPARISON STUDY: CT of the brain dated 01/19/2021. TECHNIQUE: Unenhanced axial CT scan of the brain is performed from the vertex to the skull base. A dose lowering technique was utilized adhering to the principles of ALARA. CT DOSE: 625.8 mGy.cm FINDINGS: Brain parenchyma: The brain parenchyma is normal in appearance. There is no hemorrhage, mass effect, or evidence of acute territorial ischemia by CT criteria. Luque-white matter differentiation is preserved. No extra-axial fluid collection is seen. Ventricles, sulci, cisterns: Normal in configuration. Intracranial vasculature: The visualized intracranial vasculature at the skull base is normal in appearance. Calvarium: Unremarkable. Sinuses and mastoids: The visualized paranasal sinuses are clear. The mastoid air cells are well pneumatized. Orbits: The bony orbits are grossly intact. IMPRESSION: No acute intracranial abnormality. ACT 112: Negative or not required by law. Electronically signed by: Agustin Paz M.D. 11/14/2023 5:44 PM Abdomen/Pelvis CT 11/14/23 19:10 Exam(s): CT ABDOMEN + PELVIS With Contrast IV Amt: 119 ml optiray 320 EXAM: CT Abdomen and Pelvis With Intravenous Contrast CLINICAL HISTORY: Reason for exam: abdominal pain, fever, left flank pain. TECHNIQUE: Axial computed tomography images of the abdomen and pelvis with intravenous contrast. CTDI is 14.43 mGy and DLP is 732.91 mGy-cm. Automated exposure control was utilized for the study. A dose lowering technique was utilized adhering to the principles of ALARA. CONTRAST: Patient received 119 ml optiray 320 of IV contrast COMPARISON: No relevant prior studies available. FINDINGS: ABDOMEN: Liver: Unremarkable. Gallbladder and bile ducts: Unremarkable. Pancreas: Unremarkable. Spleen: Unremarkable. Adrenals: Unremarkable. Kidneys and ureters: Normal enhancement of the kidneys. No hydronephrosis. No stones. Stomach and bowel: Unremarkable. PELVIS: Appendix: Normal appendix. Bladder: Unremarkable. Reproductive: Hyperemia around the prostate and seminal vesicles. ABDOMEN and PELVIS: Intraperitoneal space: Unremarkable. No free air. No significant fluid collection. Bones/joints: Bilateral pars defects at L5. No acute osseous abnormality. Soft tissues: Unremarkable. Vasculature: Unremarkable. Lymph nodes: Unremarkable. IMPRESSION: Hyperemia around the prostate and seminal vesicles. Correlate for infection. This may simply represent robust venous plexus. Electronically signed by: Jem Ibrahim MD 11/14/23 22:[address] 11/14/23 19:10 Exam(s): CT C SPINE EXAM: CT Cervical Spine Without Intravenous Contrast CLINICAL HISTORY: Reason for exam: Neck pain, fever. TECHNIQUE: Axial computed tomography images of the cervical spine without intravenous contrast. CTDI is 11.87 mGy and DLP is 5.94 mGy-cm. Automated exposure control was utilized for the study. A dose lowering technique was utilized adhering to the principles of ALARA. COMPARISON: No relevant prior studies available. FINDINGS: Vertebrae: No acute fracture. No malalignment. Disc spaces are preserved. No evidence of discitis or osteomyelitis. No spinal canal or foraminal stenosis. Soft tissues: Unremarkable. IMPRESSION: No acute abnormality within the cervical spine. Electronically signed by: Jem Ibrahim MD 11/15/23 00:05 AM Chest CTA 11/14/23 19:10 Exam(s): CTA CHEST IV Amt: 119 ml optiray 320 EXAM: CT Angiography Chest With Intravenous Contrast CLINICAL HISTORY: Reason for exam: PE. TECHNIQUE: Axial computed tomographic angiography images of the chest with intravenous contrast. CTDI is 17.28 mGy and DLP is 614.03 mGy-cm. Automated exposure control was utilized for the study. A dose lowering technique was utilized adhering to the principles of ALARA. MIP reconstructed images were created and reviewed. COMPARISON: No relevant prior studies available. FINDINGS: Pulmonary arteries: Unremarkable. No pulmonary embolism. Aorta: No acute findings. Normal caliber. No dissection. Lungs: No consolidation or interstitial edema. Paraseptal blebs at the apices. Airways are clear. Pleural space: Unremarkable. Heart: Unremarkable. Bones/joints: No acute fracture. Soft tissues: Unremarkable. Lymph nodes: Unremarkable. IMPRESSION: No acute findings in the visualized arteries of the chest. Electronically signed by: Jem Ibrahim MD 11/14/23 22:[address] 11/14/23 19:10 Exam(s): CT L SPINE With Contrast IV Amt: 119 ml optiray 320 EXAM: CT Lumbar Spine With Intravenous Contrast CLINICAL HISTORY: Reason for exam: Low back pain, fever, paresthesias. TECHNIQUE: Axial computed tomography images of the lumbar spine with intravenous contrast. CTDI is 14.43 mGy and DLP is 732.91 mGy-cm. Automated exposure control was utilized for the study. A dose lowering technique was utilized adhering to the principles of ALARA. CONTRAST: Patient received 119 ml optiray 320 of IV contrast COMPARISON: No relevant prior studies available. FINDINGS: No acute fracture or malalignment. Bilateral pars defects at L5. Trace anterolisthesis at L5-S1. Vertebral body heights are preserved. No canal stenosis. Mild foraminal stenosis at L4-5 and L5-S1. No evidence of discitis osteomyelitis. Soft tissues are unremarkable. IMPRESSION: No acute abnormality in the lumbar spine. Electronically signed by: Jem Ibrahim MD 11/14/23 22:[address] 11/14/23 19:10 Exam(s): CT T SPINE IV Amt: 119 ml optiray 320 EXAM: CT Thoracic Spine With Intravenous Contrast CLINICAL HISTORY: Reason for exam: Back pain, fever. TECHNIQUE: Axial computed tomography images of the thoracic spine with intravenous contrast. CTDI is 17.28 mGy and DLP is 614.03 mGy-cm. Automated exposure control was utilized for the study. A dose lowering technique was utilized adhering to the principles of ALARA. CONTRAST: Patient received 119 ml optiray 320 of IV contrast COMPARISON: No relevant prior studies available. FINDINGS: Vertebrae: Unremarkable. No acute fracture. Other bones/joints: No acute fracture or malalignment. No discitis osteomyelitis. No significant disc disease or stenosis. Soft tissues: Unremarkable. IMPRESSION: No acute abnormality within the thoracic spine. Electronically signed by: Jem Ibrahim MD 11/14/23 23:55 PM Brain MRI 11/15/23 05:59 MRI OF THE BRAIN COMBO CLINICAL HISTORY: Left-sided weakness. 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 COMPARISON STUDY: CT of the brain dated 11/14/2023. TECHNIQUE: MRI of the brain was performed utilizing various T1 and T2-weighted sequences in the axial, sagittal, and coronal planes. Contrast-enhanced sequences were acquired following the administration of 6. cc of Gadavist. FINDINGS: Brain parenchyma: There is an indeterminant 6 mm focus of signal abnormality in the white matter above the occipital horn of the right ventricle. This is best seen on coronal FLAIR image #16. The brain parenchyma is otherwise normal in appearance. There is no hemorrhage or mass effect. There is no restricted diffusion to suggest acute ischemia. No enhancing mass lesion is identified on the postcontrast images. Luque-white matter differentiation is preserved. No extra-axial fluid collection is seen. The cerebellar tonsils are normal in configuration. Ventricles, sulci, and cisterns: Normal in configuration. Pituitary and sella: Unremarkable. Intracranial vasculature: Normal flow voids are maintained at the skull base. Orbits: The bony orbits are grossly intact. Orbital contents are normal in appearance. Sinuses and mastoids: There is trace mucosal thickening within the ethmoid, left sphenoid, and maxillary sinuses. The mastoid air cells are clear. Calvarium: Unremarkable. Cervical cord: Partially visualized cervical spinal cord is normal in morphology and signal intensity. IMPRESSION: 1. No acute intracranial abnormality. 2. There is an indeterminant 6 mm focus of signal abnormality seen within the white matter adjacent to the occipital horn of the right lateral ventricle. This is of indeterminate significance as an isolated finding. ACT 112: Negative or not required by law. Electronically signed by: Agustin Paz M.D. 11/15/2023 4:47 PM Cervical Spine MRI 11/15/23 05:59 MRI OF THE CERVICAL SPINE COMBO CLINICAL HISTORY: Left-sided weakness. 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 COMPARISON STUDY: Cervical spine CT dated 11/14/2023. TECHNIQUE: MRI of the cervical spine was performed utilizing various T1 and T2- weighted sequences in the axial and sagittal planes. Contrast enhanced sequences are acquired following the IV administration of 6.8 cc of Gadavist. FINDINGS: Cervical spine: Vertebral body height and alignment are maintained throughout the cervical spine. The atlantodental articulation is maintained. The spinous processes appear intact. No destructive bony process is seen. Intervertebral discs: There is minimal disc desiccation. The disc spaces are maintained. Spinal cord: The cervical cord is normal in morphology and signal intensity. No abnormal postcontrast enhancement is identified. C2-C3: Unremarkable. C3-C4: Unremarkable. C4-C5: Unremarkable. C5-C6: A posterior disc osteophyte complex minimally effaces the ventral subarachnoid space. The neural foramina are patent. C6-C7: Unremarkable. C7-T1: Unremarkable. T1-T2: Unremarkable. Soft tissues: The prevertebral and paraspinous soft tissues are normal as visualized. Brain parenchyma: The imaged brain parenchyma at the skull base is within normal limits. IMPRESSION: 1. The cervical cord is normal in morphology and signal intensity with no abnormal postcontrast enhancement identified. 2. No central canal stenosis or neural foraminal narrowing is seen throughout the cervical spine. 3. No destructive bony process is seen. Dictated: 11/15/2023 5:13 PM Transcribed: 11/15/2023 5:34 PM [place] [id number] [place] [id number] Electronically signed by: Agustin Paz M.D. 11/15/2023 6:03 PM Orbit MRI 11/15/23 05:59 MRI OF THE ORBITS COMBO CLINICAL HISTORY: Blurry vision. 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 COMPARISON STUDY: MRI of the brain performed the same day on 11/15/2023. TECHNIQUE: High-resolution MRI of the orbits is performed utilizing various T1 and T2-weighted sequences in the axial, sagittal, and coronal planes. Contrast enhanced sequences are acquired following the IV administration of 6.8 cc of Gadavist. FINDINGS: The bony orbits are grossly intact and the orbital contents are within normal limits. There is no evidence of intra or extraconal mass lesion. The extraocular muscles are normal and symmetric. The optic nerves are normal in appearance. There is no abnormal postcontrast enhancement involving the optic nerves. The visualized brain parenchyma is within normal limits. Normal flow voids are maintained at the skull base. Mild mucosal thickening is noted within the maxillary and ethmoid sinuses. IMPRESSION: Normal MRI examination of the orbits. Dictated: 11/15/2023 5:09 PM Transcribed: 11/15/2023 5:31 PM [place] [id number] [place] [id number] Electronically signed by: Agustin Paz M.D. 11/15/2023 5:51 PM Thoracic Spine MRI 11/15/23 05:59 THORACIC SPINE MRI WITH AND WITHOUT CONTRAST HISTORY: L sided weakness, hx neuromyelitis optica TECHNIQUE: Multiplanar multisequence MRI of the thoracic spine was performed both before and after the intravenous administration of contrast. COMPARISON: Thoracic spine CT 11/14/2023. FINDINGS: No fracture or subluxation. Mild disc space narrowing within the mid thoracic spine. There is a 2 mm right paracentral focal disc protrusion at T6-T7 without significant central canal or neural foraminal narrowing. No significant central canal or neural foraminal narrowing throughout the thoracic spine. The thoracic spinal cord is normal in course, caliber, and signal intensity. Paravertebral soft tissues are unremarkable. Postcontrast sequences show no areas of abnormal enhancement. IMPRESSION: 1. Normal thoracic spinal cord. 2. Mild degenerative disc disease within the mid thoracic spine. However, no significant central canal or neural foraminal narrowing. ACT 112: Negative or not required by law. Electronically signed by: Dino Gutierrez M.D. 11/16/2023 3:51 PM Lumbar Spine MRI 11/16/23 05:59 LUMBAR SPINE MRI WITH AND WITHOUT CONTRAST HISTORY: L sided weakness, hx neuromyelitis optica TECHNIQUE: Multiplanar multisequence MRI of the lumbar spine was performed both before and after the intravenous administration of contrast. COMPARISON: Lumbar spine CT 11/14/2023. FINDINGS: For the purpose of the report the L5-S1 disc space will be located on axial image 27 of 30. No acute fractures within the lumbar spine. The visualized sacrum is intact. Paravertebral soft tissues are unremarkable. Bilateral L5 spondylolysis with 3 mm of anterolisthesis. This remains unchanged. Mild disc space narrowing and disc desiccation at L4-L5. Remaining disc spaces are preserved. The conus terminates at the T12-L1 disc space level. Postcontrast sequences show no areas of abnormal enhancement. L1-L2: No significant central canal or neural foraminal narrowing. L2-L3: No significant central canal or neural foraminal narrowing. L3-L4: No significant central canal or neural foraminal narrowing. L4-L5: Small broad-based posterior disc protrusion measuring approximately 3 mm. However, no significant central canal or neural foraminal narrowing. L5-S1: No significant central canal or neural foraminal narrowing. IMPRESSION: 1. No fractures within the lumbar spine. 2. 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 3. A small broad-based posterior disc protrusion at L4-L5 without significant central canal or neural foraminal narrowing. ACT 112: Negative or not required by law. Electronically signed by: Dino Gutierrez M.D. 11/16/2023 4:16 PM Pending Results Patient Have Any Pending Studies at Discharge: No Discharge Instructions Given to Patient (Per Discharging Provider) Jeff, You were seen by the neurologist for your left sided weakness and they are recommending discharge home with a prednisone taper. Please take it as prescribed. They also recommend use of thiamine and folic acid supplements. We noted that your Vitamin D levels were low so we started you on daily supplementation for that. You also tested positive for covid but you are not having any typical symptoms. Please continue with supportive care for that if needed (mucinex, cough syrup, etc). The orthopedic spine surgeon took a look at your MRI of your spine and advised that you should follow up as an outpatient with their office. Please call their office to make an appointment. The steroids should help with the back pain. We are also discharging you home with as needed tylenol 1000mg every 8 hours and ibuprofen 600mg NEEDED for pain. Please take the prescribed pantoprazole 40mg daily to help protect your gastrointestinal tract while on the steroids and ibuprofen. We are also discharging you ruthie with lidocaine patches to help with pain. Please keep close follow up with your primary care provider after discharge. Please also keep close follow up with your neurologist Dr Powell after discharge. And please keep close followup with the orthopedic spine surgeon after discharge. Please do not hesitate to come back to the emergency room if your symptoms worsen or return. It was a pleasure taking care of you while you were here. Total Time Total Time Spent Total Time Spent (In Minutes): 75
== END 2023-11-17 14:54 | disposition home or self-care (01) ==
LOC: ED 16:44 → EDINP 16:44 → 2W 11-15 02:14